=== PATIENT | female | born 1985 | race Caucasian/White ===

== ENCOUNTER 2016-05-24 22:26 | Emergency (ER) | payer OTHER ==
[2016-05-24 22:38] VITALS: TEMP 98.3
[2016-05-24] MEDS ORDERED: MORPHINE SULFATE 4 MG/ML SYRINGE IV STA (22:46)
[2016-05-24] MEDS ORDERED: ONDANSETRON 4 MG/2 ML VIAL IVP STA (22:46)
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
[2016-05-25] MEDS ORDERED: KETOROLAC 30 MG/ML 1 ML VIAL IVP STA (00:22)
[2016-05-25 00:47] VITALS: BP 120/80; PULSE 70; RESP 14
== END 2016-05-25 00:45 | disposition home or self-care (01) ==
LOC: EC 22:26
DX: T14.8 Other injury of unspecified body region (principal); R10.9 Unspecified abdominal pain; K83.8 Other specified diseases of biliary tract; F17.200 Nicotine dependence, unspecified, uncomplicated; Y04.0XXA Assault by unarmed brawl or fight, initial encounter
CPT/HCPCS: 99285; 96374; 96375 ×2; 76700; 72125; 70486; 70450; J2270; J2405; J1885

== ENCOUNTER 2016-06-14 13:43 | Emergency (ER) | payer OTHER ==
[2016-06-14 14:18] VITALS: PULSE 102; RESP 18; TEMP 98.2
--- NOTE | 2016-06-14 14:29 | ED ---
General Adult HPI - General Chief complaint: Dental/Oral Stated complaint: dental pain Time Seen by Provider: 06/14/16 14:19 Source: patient, RN notes reviewed Mode of arrival: ambulatory Limitations: no limitations - History of Present Illness Initial comments: This is a 30-year-old female who presents with left-sided dental pain that started last night. Patient states she has not taken anything for pain. Patient states she has had toothaches before in the past. Patient denies any drainage from the teeth. Patient denies any fever/chills. Patient states pain radiates to her left ear. Patient denies any chance of being . Patient denies any recent fever, chills, shortness breath, chest pain, abdominal pain, nausea/vomiting/diarrhea, back pain, numbness, tingling, hematuria, headache, or visual changes, or any other complaints. - Related Data Previous Rx's Medication Instructions Recorded HYDROcodone/APAP 5-325MG [[place] 1 tab PO Q6HR #12 tab 06/14/16 5-325] Penicillin V Potassium [Pen Vee K] 500 mg PO QID 7 Days 06/14/16 Allergies Allergy/AdvReac Type Severity Reaction Status Date / Time No Known Allergies Allergy Verified 06/14/16 14:34 Review of Systems ROS Statement: Those systems with pertinent positive or pertinent negative responses have been documented in the HPI. ROS Other: All systems not noted in ROS Statement are negative. Past Medical History Past Medical History: No Reported History Additional Past Medical History / Comment(s): ovarian cyst History of Any Multi-Drug Resistant Organisms: None Reported Past Surgical History: No Surgical Hx Reported Past Psychological History: No Psychological Hx Reported Smoking Status: Current every day smoker Past Alcohol Use History: Occasional Past Drug Use History: None Reported General Exam - General Exam Comments Initial Comments: General: The patient is awake and alert, in no distress, and does not appear acutely ill. Eye: Pupils are equal, round and reactive to light, extra-ocular movements are intact. No nystagmus. There is normal conjunctiva bilaterally. No signs of icterus. Ears: TMs pink and pearly with intact cone of light bilaterally. Normal external ear canals Nose: Nasal turbinates pink and moist Mouth and throat: Patient has widespread tooth decay and a partial in. There is tenderness to palpation over tooth #12 and to multiple teeth on the lower left side that she cannot pinpoint. Patient has no external facial swelling. There are moist mucous membranes and no oral lesions. Neck: Submandibular lymph nodes present and tender on the left side. The neck is supple, there is no JVD. Cardiovascular: There is a regular rate and rhythm. No murmur, rub or gallop is appreciated. Respiratory: Lungs are clear to auscultation, respirations are non-labored, breath sounds are equal. No wheezes, stridor, rales, or rhonchi. Musculoskeletal: Normal ROM, no tenderness. Strength 5/5. Sensation intact. Radial pulses equal bilaterally 2+. Neurological: A&O x 3. CN II-XII intact, There are no obvious motor or sensory deficits. Coordination appears grossly intact. Speech is normal. Skin: Skin is warm and dry and no rashes or lesions are noted. Psychiatric: Cooperative, appropriate mood & affect, normal judgment. Limitations: no limitations Course Vital Signs 06/14/16 06/14/16 14:17 14:56 Temperature 98.2 F Pulse Rate 102 H Respiratory 18 Rate Blood Pressure 159/112 138/86 O2 Sat by Pulse 100 Oximetry Medical Decision Making - Medical Decision Making This is a 30-year-old female who presents with left-sided dental pain that started last night. On physical exam patient is afebrile in the EC. Patient has widespread tooth decay and a partial in. There is tenderness to palpation over tooth #12 and to multiple teeth on the lower left side that she cannot pinpoint. Patient has no external facial swelling. There are moist mucous membranes and no oral lesions. I discussed with the patient that she'll be put on antibiotics. I discussed Motrin for pain and [place] for any breakthrough pain. I discussed warm compresses to the area. Patient needs to follow-up with the dentist as soon as possible. I discussed return parameters. Elevated blood pressure noted. Patient was given a dose of [place] and her blood pressure was rechecked and was 138/86. Discussed that patient should follow up with PCP in one to 2 days or return to the EC for any worsening symptoms or for any further concerns. Patient was receptive to this plan and patient will be discharged home. Disposition Clinical Impression: Pain, dental Disposition: HOME SELF-CARE Condition: Good Instructions: Toothache (ED) Additional Instructions: Please use antibiotics as prescribed. Please use pain medication as prescribed. May use [id number] Motrin for pain. Use warm compresses to the area for pain. Please follow-up with dentist as soon as possible. [facility] dental plan: [address] [place] [address], . [employer]: Have to pay $50 for x-rays and the rest is covered. [phone]. Please follow up with PCP tomorrow or return to the EC for any worsening symptoms or for any further concerns. Prescriptions: HYDROcodone/APAP 5-325MG [[place] 5-325] 1 tab PO Q6HR #12 tab Penicillin V Potassium [Pen Vee K] 500 mg PO QID 7 Days Referrals: Jon Blum MD [Primary Care Provider] - 1-2 days Time of Disposition: 14:29
[2016-06-14] MEDS ORDERED: HYDROcodone/APAP 5-325MG 1 EACH TAB PO STA (14:37)
[2016-06-14 14:56] VITALS: BP 138/86
== END 2016-06-14 15:00 | disposition home or self-care (01) ==
LOC: EC 13:43
DX: K02.9 Dental caries, unspecified (principal); F17.200 Nicotine dependence, unspecified, uncomplicated
CPT/HCPCS: 99282

== ENCOUNTER 2016-08-12 08:04 | Emergency (ER) | payer OTHER ==
[2016-08-12 08:19] VITALS: TEMP 98
[2016-08-12] MEDS ORDERED: HYDROcodone/APAP 5-325MG 1 EACH TAB PO STA (08:38)
--- NOTE | 2016-08-12 08:42 | ED ---
General Adult HPI - General Chief complaint: Dental/Oral Stated complaint: DENTAL PAIN Time Seen by Provider: 08/12/16 08:23 Source: patient, RN notes reviewed Mode of arrival: ambulatory Limitations: no limitations - History of Present Illness Initial comments: 1-year-old female who presents emergency room today with chief complaint of dental infection. She does admit that she's been on antibiotics over the last few days. She states she is taking a different prescription of the penicillin. She states she had left over. She is not sure how old it is. She states she was unable to get the pharmacy to get the new prescription filled. She states she's been using tramadol and naproxen for pain with little relief. She states is increased pain swelling over tooth #14. Patient denies any other complaints or symptoms. Patient denies any recent fever, chills, shortness of breath, chest pain, back pain, abdominal pain, nausea or vomiting, numbness or tingling , dysuria or hematuria, constipation or diarrhea, headaches or visual changes, or any other complaints. - Related Data Previous Rx's Medication Instructions Recorded HYDROcodone/APAP 5-325MG [[place] 1 tab PO Q6HR #12 tab 06/14/16 5-325] Penicillin V Potassium [Pen Vee K] 500 mg PO QID 7 Days 06/14/16 Clindamycin HCl [Cleocin] 300 mg PO Q8H 10 Days 08/12/16 Hydrocodone/Acetaminophen [[place] 1 each PO Q6HR PRN #6 tab 08/12/16 5-325] Allergies Allergy/AdvReac Type Severity Reaction Status Date / Time No Known Allergies Allergy Verified 06/14/16 14:34 Review of Systems ROS Statement: Those systems with pertinent positive or pertinent negative responses have been documented in the HPI. ROS Other: All systems not noted in ROS Statement are negative. Past Medical History Past Medical History: No Reported History Additional Past Medical History / Comment(s): ovarian cyst History of Any Multi-Drug Resistant Organisms: None Reported Past Surgical History: No Surgical Hx Reported Past Psychological History: No Psychological Hx Reported Smoking Status: Current every day smoker Past Alcohol Use History: Occasional Past Drug Use History: None Reported General Exam - General Exam Comments Initial Comments: General: The patient is awake and alert, in no distress, and does not appear acutely ill. Eye: Pupils are equal, round and reactive to light, extra-ocular movements are intact. No nystagmus. There is normal conjunctiva bilaterally. No signs of icterus. Ears, nose, mouth and throat: There are moist mucous membranes and no oral lesions. Patient does have abscess above tooth #14. Locally tender in this area. Uvula midline. Patient's without any difficulty. Neck: The neck is supple, there is no tenderness or JVD. Cardiovascular: There is a regular rate and rhythm. No murmur, rub or gallop is appreciated. Respiratory: Lungs are clear to auscultation, respirations are non-labored, breath sounds are equal. No wheezes, stridor, rales, or rhonchi. Musculoskeletal: Normal ROM, no tenderness. Strength 5/5. Sensation intact. Pulses equal bilaterally 2+. Neurological: A&O x 3. CN II-XII intact, There are no obvious motor or sensory deficits. Coordination appears grossly intact. Speech is normal. Skin: Skin is warm and dry and no rashes or lesions are noted. Psychiatric: Cooperative, appropriate mood & affect, normal judgment. Limitations: no limitations Course Vital Signs 08/12/16 08:11 Temperature 98 F Pulse Rate 112 H Respiratory 20 Rate Blood Pressure 145/104 O2 Sat by Pulse 99 Oximetry Procedures - Procedures Initial comment: 18-gauge needle was used to incise abscess above tooth #14. A small to moderate amount of purulent drainage was removed. Disposition Clinical Impression: Dental abscess Disposition: HOME SELF-CARE Condition: Good Instructions: Dental Abscess (ED) Additional Instructions: Please use a tea bag in the gumline to help a lot more in the abscess drainage. Please continue with Listerine or salt water gargles as discussed. Please use previously prescribed antibiotics along with new antibiotic clindamycin. Please follow-up with dentist over the next 2 days. Please return to emergency room if the symptoms increase or worsen or for any other concerns. Prescriptions: Clindamycin HCl [Cleocin] 300 mg PO Q8H 10 Days Hydrocodone/Acetaminophen [[place] 5-325] 1 each PO Q6HR PRN #6 tab PRN Reason: Pain Referrals: None,Stated [Primary Care Provider] - 1-2 days Time of Disposition: 08:40
[2016-08-12 09:00] VITALS: BP 143/97; PULSE 102; RESP 18
== END 2016-08-12 09:01 | disposition home or self-care (01) ==
LOC: EC 08:04
DX: K04.7 Periapical abscess without sinus (principal); F17.200 Nicotine dependence, unspecified, uncomplicated
CPT/HCPCS: 41800; 99282

== ENCOUNTER 2016-10-21 03:39 | Emergency (ER) | payer OTHER ==
[2016-10-21] MEDS ORDERED: MORPHINE SULFATE 4 MG/ML SYRINGE IVP STA ×2 (04:14→04:47)
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
[2016-10-21 04:42] LABS: Basophils % (A) 0 %; CHCM 34.9; Eosinophils # (A) 0.2 k/uL (0-0.7); Eosinophils % (A) 1 %; HCT 42.7 % (34.0-46.0); HDW 2.51; HGB 14.5 gm/dL (11.4-16.0); Luc # (Auto) 0.28; Luc % (Auto) 3; Lymphocytes # (A) 2.4 k/uL (1.0-4.8); Lymphocytes % (A) 21 %; MCH 34.3 pg (25.0-35.0); MCV 100.7 fL (80.0-100.0); Macrocytosis Slight; Mean Platelet Volume 7.5; Monocytes # (A) 0.5 k/uL (0-1.0); Monocytes % (A) 4 %; Neutrophils # (A) 7.9 k/uL (1.3-7.7); Neutrophils % (A) 70 %; RBC 4.24 m/uL (3.80-5.40); RDW 15.1 % (11.5-15.5); WBC 11.3 k/uL (3.8-10.6); WBC (Perox) 11.48
[2016-10-21 04:48] LABS: ALT 26 U/L (9-52); AST 29 U/L (14-36); Alkaline Phosphatase 65 U/L (38-126); Amylase 35 U/L (30-110); Anion Gap 16 mmol/L; Blood Urea Nitrogen 9 mg/dL (7-17); Calcium 9.5 mg/dL (8.4-10.2); Carbon Dioxide 22 mmol/L (22-30); Chloride 107 mmol/L (98-107); Glucose 111 mg/dL (74-99); Non-African American GFR(MDRD) >60 (>60 ml/min/1.73 sqM); Potassium 3.9 mmol/L (3.5-5.1); Sodium 145 mmol/L (137-145); Total Bilirubin 0.4 mg/dL (0.2-1.3); Total Protein 7.7 g/dL (6.3-8.2)
[2016-10-21] MEDS ORDERED: LACTATED RINGERS 1,000 ML IV ONE (04:54)
[2016-10-21 04:55] VITALS: BP 135/101; PULSE 88; RESP 20; TEMP 97.7
[2016-10-21 04:55] LABS: Glucose,Whole Blood 113 mg/dL (75-99)
[2016-10-21 04:59] LABS: Alcohol 332 mg/dL; INR 1.1 (<1.2); Partial Thromboplastin Time 26.5 sec (22.0-30.0); Prothrombin Time 11.4 sec (9.0-12.0)
[2016-10-21 05:05] LABS: Creatine Kinase 70 U/L (30-135)
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
[2016-10-21 05:17] LABS: Creatine Kinase MB 0.3 ng/mL (0.0-2.4); Troponin I <0.012 ng/mL (0.000-0.034)
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
[2016-10-21 05:46] LABS: Appearance,Urine Clear (Clear); Bacteria,Urine Occasional /hpf; Bilirubin,Urine Negative (Negative); Glucose,Urine (UA) Negative (Negative); Ketones,Urine Negative (Negative); Leukocyte Esterase,Urine Negative (Negative); Mucus,Urine Rare /hpf; Nitrite,Urine Positive (Negative); Particle Count 46555; Protein,Urine Negative (Negative); RBC,Urine <1 /hpf (0-5); Specific Gravity,Urine 1.003 (1.001-1.035); Squamous Epithelial Cell,Urine 2 /hpf (0-4); UA Billing (MACRO vs. MICRO) MICRO; Urobilinogen,Urine <2.0 mg/dL (<2.0); WBC,Urine 2 /hpf (0-5)
[2016-10-21] MEDS ORDERED: KETAMINE 10 MG/ML 20 ML VIAL IV ONE (06:26)
== END 2016-10-21 06:45 | disposition other institution (70) ==
LOC: EC 03:39
DX: T21.04XA Burn of unspecified degree of lower back, initial encounter (principal); T21.02XA Burn of unspecified degree of abdominal wall, initial encounter; T31.11 Burns involving 10-19% of body surface with 10-19% third degree burns; F10.229 Alcohol dependence with intoxication, unspecified; Y90.8 Blood alcohol level of 240 mg/100 ml or more; R40.2412 Glasgow coma scale score 13-15, at arrival to emergency department; F17.200 Nicotine dependence, unspecified, uncomplicated; X03.8XXA Other exposure to controlled fire, not in building or structure, initial encounter; Y92.009 Unspecified place in unspecified non-institutional (private) residence as the place of occurrence of the external cause
CPT/HCPCS: 99285; 96374; 96375; 96376; 96361; 36415; 93005; 86900; 86901; 80053; 82150; 82550; 82553; 83605; 83690; 84484; 85025; 85610; 85730; 86850; 81001; 81025; 80306; 80320; 71010; J2270

== ENCOUNTER 2016-10-25 10:04 | Emergency (ER) | payer OTHER ==
[2016-10-25 10:11] VITALS: BP 141/94; PULSE 91; RESP 18; TEMP 97.1
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
== END 2016-10-25 11:11 | disposition home or self-care (01) ==
LOC: EC 10:04
DX: T21.04XA Burn of unspecified degree of lower back, initial encounter (principal); T31.11 Burns involving 10-19% of body surface with 10-19% third degree burns; Z76.0 Encounter for issue of repeat prescription; F17.200 Nicotine dependence, unspecified, uncomplicated
CPT/HCPCS: 99283

== ENCOUNTER 2016-11-07 17:46 | Emergency (ER) | payer OTHER ==
[2016-11-07 17:58] VITALS: BP 141/92; PULSE 109; RESP 18; TEMP 98.1
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
== END 2016-11-07 18:29 | disposition home or self-care (01) ==
LOC: EC 17:46
DX: T21.24XD Burn of second degree of lower back, subsequent encounter (principal); T21.25XD Burn of second degree of buttock, subsequent encounter; T21.02XD Burn of unspecified degree of abdominal wall, subsequent encounter; Z76.0 Encounter for issue of repeat prescription; F17.200 Nicotine dependence, unspecified, uncomplicated; X08.8XXD Exposure to other specified smoke, fire and flames, subsequent encounter
CPT/HCPCS: 99283

== ENCOUNTER 2017-02-16 10:22 | Emergency (ER) | payer OTHER ==
[2017-02-16 10:27] VITALS: RESP 18; TEMP 97.7
[2017-02-16] MEDS ORDERED: KETOROLAC 60 MG/2 ML VIAL IVP STA (10:48)
--- NOTE | 2017-02-16 10:48 | ED ---
General Adult HPI - General Chief complaint: Extremity Problem,Nontraumatic Stated complaint: Left Hip Pain Time Seen by Provider: 02/16/17 10:25 Source: patient, EMS, RN notes reviewed Mode of arrival: EMS Limitations: no limitations - History of Present Illness Initial comments: This is a 21-year-old female presents to the emergency department stating that she woke up this morning in her left buttocks as well as her left anterior thigh. Hurting significantly. Patient called and he was to bring her to the hospital. Patient states she's had these symptoms on and off for years but has never followed up and his never been told what the problem is. Patient denies any injury or trauma. Patient denies any swelling or redness. Patient states she has no symptoms lately but the symptoms are similar to the previous ones. Patient denies any back pain. Patient denies any other problems at this time. Patient states movement definitely increases the pain. - Related Data Home Medications Medication Instructions Recorded Confirmed No Known Home Medications [No 02/16/17 02/16/17 Known Home Medications] Allergies Allergy/AdvReac Type Severity Reaction Status Date / Time No Known Allergies Allergy Verified 02/16/17 10:58 Review of Systems ROS Statement: Those systems with pertinent positive or pertinent negative responses have been documented in the HPI. ROS Other: All systems not noted in ROS Statement are negative. Past Medical History Past Medical History: No Reported History History of Any Multi-Drug Resistant Organisms: None Reported Past Surgical History: No Surgical Hx Reported Past Psychological History: No Psychological Hx Reported Smoking Status: Current every day smoker Past Alcohol Use History: Occasional Past Drug Use History: None Reported General Exam - General Exam Comments Initial Comments: GENERAL: Patient is well-developed and well-nourished. Patient is nontoxic and well- hydrated and is in mild distress. Patient's breath smells of alcohol ENT: Neck is soft and supple. No significant lymphadenopathy is noted. Oropharynx is clear. Moist mucous membranes. Neck has full range of motion without eliciting any pain. EYES: The sclera were anicteric and conjunctiva were pink and moist. Extraocular movements were intact and pupils were equal round and reactive to light. Eyelids were unremarkable. PULMONARY: Unlabored respirations. Good breath sounds bilaterally. No audible rales rhonchi or wheezing was noted. CARDIOVASCULAR: There is a regular rate and rhythm without any murmurs gallops or rubs. ABDOMEN: Soft and nontender with normal bowel sounds. No palpable organomegaly was noted. There is no palpable pulsatile mass. SKIN: Skin is clear with no lesions or rashes and otherwise unremarkable. NEUROLOGIC: Patient is alert and oriented x3. Cranial nerves II through XII are grossly intact. Motor and sensory are also intact. Normal speech, volume and content. Symmetrical smile. MUSCULOSKELETAL: Patient's left buttocks is tender to palpation there is no signs of trauma there is no redness or swelling. LYMPHATICS: No significant lymphadenopathy is noted PSYCHIATRIC: Normal psychiatric evaluation. Limitations: no limitations Course Vital Signs 02/16/17 10:23 Temperature 97.7 F Pulse Rate 102 H Respiratory 18 Rate Blood Pressure 136/96 O2 Sat by Pulse 97 Oximetry Medical Decision Making - Medical Decision Making Patient initially lied about her date and we were unable to look at previous visits. Patient had an alcohol level with a breathalyzer at 0.078 Patient denied having any pain medicines recently and she has 3 times felt a prescription for narcotics in January. X-ray shows no acute abnormality. Disposition Clinical Impression: Left buttock pain, Drug-seeking behavior, Alcohol intoxication Disposition: HOME SELF-CARE Condition: Good Instructions: Chronic Pain (ED) Referrals: None,Stated [Primary Care Provider] - 1-2 days Time of Disposition: 11:47
--- NOTE | 2017-02-16 11:39 | XR ---
EXAMINATION TYPE: XR Hip LT and AP Pelvis , ONE VIEW DATE OF EXAM ORDERED: 02/16/2017 HISTORY: Pain. COMPARISON: None. FINDINGS: Osseous structures about the hip are normal. No fracture or dislocation is seen. The hip j oints are reasonably well-maintained. There are phleboliths within the pelvis. IMPRESSION: NO ACUTE OSSEOUS LESION.
[2017-02-16 11:59] VITALS: BP 121/89; PULSE 89
== END 2017-02-16 11:59 | disposition home or self-care (01) ==
LOC: EC 10:22 → EDBD 10:22 → MERGE 10:22 → EC 11:59
DX: M25.552 Pain in left hip (principal); F10.129 Alcohol abuse with intoxication, unspecified; Z76.5 Malingerer [conscious simulation]; F17.200 Nicotine dependence, unspecified, uncomplicated
CPT/HCPCS: 73502; 99284; 96374; J1885

== ENCOUNTER 2017-04-02 11:23 | Emergency (ER) | payer OTHER ==
[2017-04-02] MEDS ORDERED: MORPHINE SULFATE 5 MG/ML SYRINGE IVP STA (11:45)
[2017-04-02] MEDS ORDERED: CLINDAMYCIN 600 MG in DEXTROSE 5% IN WATER 50 ML IVPB STA ×2 (11:45)
[2017-04-02] MEDS ORDERED: RX INFO: IV CONTRAST WAS GIVEN 1 EACH MISC MISCELLANE PRN (11:45)
--- NOTE | 2017-04-02 11:54 | ED ---
ENT HPI - General Chief complaint: Dental/Oral Stated complaint: Dental pain Time Seen by Provider: 04/02/17 11:38 Source: patient Mode of arrival: ambulatory Limitations: no limitations - History of Present Illness Initial comments: This is a 31-year-old female with a history of multiple dental issues who presents emergency department for left upper dental pain and facial swelling. She states that the symptoms started a few days ago and have gradually worsened. She has no point with her oral surgeon however is not able to get in there until 1 week from now. She states that the pain is increased and the swelling has increased and she feels like she has a pocket on the roof of her mouth. She states that she has partial dentures that she wears however she's had some much pain she's been unable to wear them. She denies any fevers or chills. No shortness of breath. She denies any other acute complaints. - Related Data Previous Rx's Medication Instructions Recorded Clindamycin HCl [Cleocin] 600 mg PO Q8H #42 cap 04/02/17 HYDROcodone/APAP 10-325MG [[place] 1 tab PO Q6H PRN #12 tab 04/02/17 10-325] Allergies Allergy/AdvReac Type Severity Reaction Status Date / Time No Known Allergies Allergy Verified 04/02/17 11:35 Review of Systems ROS Statement: Those systems with pertinent positive or pertinent negative responses have been documented in the HPI. ROS Other: All systems not noted in ROS Statement are negative. Past Medical History Past Medical History: No Reported History Additional Past Medical History / Comment(s): ovarian cyst History of Any Multi-Drug Resistant Organisms: None Reported Past Surgical History: No Surgical Hx Reported Past Psychological History: No Psychological Hx Reported Smoking Status: Current every day smoker Past Alcohol Use History: Occasional Past Drug Use History: None Reported General Exam - General Exam Comments Initial Comments: Constitutional: Awake alert Appears comfortable Head: Normocephalic atraumatic Eyes: no conjunctival injection No scleral icterus EOMI ENT: There is a fluctuant area on the hard palate adjacent to the left upper molars, there is extensive swelling to the patient's left cheek without any fluctuants noted, there is gingivitis involving all molars of the left upper area. Oropharynx is clear Neck: No JVD Supple Heart: Regular rate rhythm normal S1-S2 no murmurs Lungs: Clear to auscultation bilaterally No wheezing No rales Abdomen: Soft nondistended nontender Extremities: Non edematous DP pulses intact Radial pulses intact Neuro: A&Ox3 No focal neurologic deficits Psych: Appropriate mood and affect Limitations: no limitations Course Vital Signs 04/02/17 04/02/17 11:29 13:22 Temperature 98.1 F Pulse Rate 119 H 96 Respiratory 18 16 Rate Blood Pressure 160/100 162/118 O2 Sat by Pulse 99 99 Oximetry Medical Decision Making - Medical Decision Making This is a 31-year-old female presents emergency department for dental pain. She had a computed tomography scan that showed multiple periapical abscesses and one on the hard palate and one on the buccal mucosa. I spoke with Dr. verdin from oral surgery who stated that he did not recommend draining these at this time and just later on antibiotics and have him follow-up in his office. Patient likely needs to have her teeth extracted. Patient will be sent home with pain medications and clindamycin. Told to follow-up with Dr. Mccloud. Return if she has worsening symptoms. All questions were answered. - Lab Data Result diagrams: 04/02/17 12:07 04/02/17 12:07 Lab Results 04/02/17 04/02/17 04/02/17 Range/Units 12:07 12:07 12:07 WBC 15.7 H (3.8-10.6) k/uL RBC 4.41 (3.80-5.40) m/uL Hgb 14.3 (11.4-16.0) gm/dL Hct 44.5 (34.0-46.0) % MCV 100.7 H (80.0-100.0) fL MCH 32.5 (25.0-35.0) pg MCHC 32.3 (31.0-37.0) g/dL RDW 15.3 (11.5-15.5) % Plt Count 230 (150-450) k/uL Neutrophils % 78 % Lymphocytes % 13 % Monocytes % 5 % Eosinophils % 1 % Basophils % 1 % Neutrophils # 12.2 H (1.3-7.7) k/uL Lymphocytes # 2.1 (1.0-4.8) k/uL Monocytes # 0.8 (0-1.0) k/uL Eosinophils # 0.2 (0-0.7) k/uL Basophils # 0.1 (0-0.2) k/uL Macrocytosis Slight Sodium 140 (137-145) mmol/L Potassium 4.0 (3.5-5.1) mmol/L Chloride 104 (98-107) mmol/L Carbon Dioxide 22 (22-30) mmol/L Anion Gap 14 mmol/L BUN 10 (7-17) mg/dL Creatinine 0.70 (0.52-1.04) mg/dL Est GFR (MDRD) Af Amer >60 (>60 ml/min/1.73 sqM) Est GFR (MDRD) Non-Af >60 (>60 ml/min/1.73 sqM) Glucose 106 H (74-99) mg/dL Calcium 10.0 (8.4-10.2) mg/dL Total Bilirubin 0.6 (0.2-1.3) mg/dL AST 43 H (14-36) U/L ALT 38 (9-52) U/L Alkaline Phosphatase 74 (38-126) U/L Total Protein 8.1 (6.3-8.2) g/dL Albumin 4.6 (3.5-5.0) g/dL Urine HCG, Qual Not Detected (Not Detectd) Disposition Clinical Impression: Periapical abscess Disposition: HOME SELF-CARE Condition: Stable Instructions: Dental Abscess (ED) Prescriptions: Clindamycin HCl [Cleocin] 600 mg PO Q8H #42 cap HYDROcodone/APAP 10-325MG [[place] 10-325] 1 tab PO Q6H PRN #12 tab PRN Reason: Pain Referrals: None,Stated [Primary Care Provider] - 1-2 days
[2017-04-02 12:19] LABS: Basophils # (A) 0.1 k/uL (0-0.2); Basophils % (A) 1 %; Eosinophils # (A) 0.2 k/uL (0-0.7); Eosinophils % (A) 1 %; HCT 44.5 % (34.0-46.0); HGB 14.3 gm/dL (11.4-16.0); Lymphocytes # (A) 2.1 k/uL (1.0-4.8); Lymphocytes % (A) 13 %; MCH 32.5 pg (25.0-35.0); MCHC 32.3 g/dL (31.0-37.0); MCV 100.7 fL (80.0-100.0); Macrocytosis Slight; Mean Platelet Volume 8.1; Monocytes # (A) 0.8 k/uL (0-1.0); Monocytes % (A) 5 %; Neutrophils # (A) 12.2 k/uL (1.3-7.7); Neutrophils % (A) 78 %; Platelet Count 230 k/uL (150-450); RBC 4.41 m/uL (3.80-5.40); RDW 15.3 % (11.5-15.5); WBC 15.7 k/uL (3.8-10.6)
[2017-04-02 12:30] LABS: ALT 38 U/L (9-52); AST 43 U/L (14-36); Albumin 4.6 g/dL (3.5-5.0); Alkaline Phosphatase 74 U/L (38-126); Anion Gap 14 mmol/L; Blood Urea Nitrogen 10 mg/dL (7-17); Carbon Dioxide 22 mmol/L (22-30); Chloride 104 mmol/L (98-107); Glucose 106 mg/dL (74-99); Sodium 140 mmol/L (137-145); Total Bilirubin 0.6 mg/dL (0.2-1.3); Total Protein 8.1 g/dL (6.3-8.2)
[2017-04-02 13:23] VITALS: PULSE 96
--- NOTE | 2017-04-02 13:25 | CT ---
EXAMINATION TYPE: CT facial bones w con DATE OF EXAM: 04/02/2017 COMPARISON: NONE HISTORY: dental pain and Lt facial swelling CT DLP: 628.7 mGycm Automated exposure control for dose reduction was used. CONTRAST: CT scan of the facial bones is performed with IV Contrast, patient injected with 100 mL of Omnipaque 300. TECHNIQUE: CT scan of the sinuses is performed without contrast, axial images are obtained, coronal r eformatted images are also reviewed. FINDINGS: There is periapical lucency surrounding approximately teeth 13 through 15 of the upper left maxillary bone. Lateral to this there is a area of cortical erosion along the nonbuccal surface rela ryan to a small periapical dentigerous abscess with surrounding phlegmonous changes and peripheral enh ancement on series 4 image 35 measuringr 5.0 cm. Second abscess along the buccal surface on the same image measures 4.9 cm. Surrounding inflammatory change of the left maxillary region extending into th e infraorbital soft tissues is noted. Likely reactive adenopathy of the left submandibular region and level 1B and 2 are seen with the largest lymph node measuring 1.3 cm in short axis on series 4 image 18. Other right mandibular periapical lucencies are seen of the posterior T8. No cortical erosion. Moderate circumferential mucosal thickening is seen of the maxillary sinuses and left ethmoid sinuses with scant mucosal thickening in the frontal sinuses. Sphenoid sinuses are well aerated. There is ri ghtward nasal septal deviation and a small nasal septal spur. Scant amount of fluid is seen within th e right mastoid air cells. IMPRESSION: 1. Periapical lucency with cortical erosion surrounding approximately teeth 13-15 of the left maxilla ry bone with periapical abscesses measuring 5 mm of the buccal and nonbuccal surface. Likely reactive left-sided cervical adenopathy and left maxillary soft tissue inflammatory change are seen. 2. Right mandibular periapical lucencies representing dental disease without cortical erosion or absc ess.
[2017-04-02 14:17] VITALS: BP 160/107; RESP 20; TEMP 99.2
== END 2017-04-02 14:17 | disposition home or self-care (01) ==
LOC: EC 11:23
DX: K04.7 Periapical abscess without sinus (principal); R22.0 Localized swelling, mass and lump, head; F17.200 Nicotine dependence, unspecified, uncomplicated
CPT/HCPCS: 36415; 80053; 85025; 81025; 70487; 99283; 96365; 96375; Q9967; J2274

== ENCOUNTER 2017-07-15 22:13 | Emergency (ER) | payer OTHER ==
[2017-07-15] MEDS ORDERED: HYDROcodone/APAP 5-325MG 1 EACH TAB PO STA (23:43)
[2017-07-15] MEDS ORDERED: BENZOCAINE SPRAY 1 CAN MUCOUS MEM STA (23:43)
[2017-07-15] MEDS ORDERED: PENICILLIN VK 500MG STARTER 4 TAB BTL PO STA (23:44)
--- NOTE | 2017-07-16 01:01 | ED ---
ENT HPI - General Chief complaint: ENT Stated complaint: ENT Time Seen by Provider: 07/15/17 23:29 Source: patient Mode of arrival: ambulatory Limitations: no limitations - History of Present Illness Initial comments: 31-year-old female patient presents to the emergency department today for evaluation of dental abscess. Patient states that over the last couple of days she has had increased pain to the left upper dentition. Patient states that she developed a "bubble" on the roof of her mouth. Patient states that this is very painful. She denies any fevers or chills. Denies any difficulty swallowing or trismus. She denies any nausea or vomiting. Patient states that she has many cavities however has not been able to get to a dentist. Patient denies any recent rash, shortness breath, chest pain, abdominal pain, diarrhea, constipation, back pain, numbness, tingling, dizziness, weakness, hematuria, dysuria, urinary urgency, urinary frequency, headache, visual changes, or any other complaints. - Related Data Previous Rx's Medication Instructions Recorded Clindamycin HCl [Cleocin] 600 mg PO Q8H #42 cap 04/02/17 HYDROcodone/APAP 10-325MG [[place] 1 tab PO Q6H PRN #12 tab 04/02/17 10-325] Hydrocodone/Acetaminophen [[place] 1 tab PO Q6HR PRN #12 tab 07/16/17 5-325] Penicillin V Potassium [Pen Vee K] 500 mg PO Q6H #40 tablet 07/16/17 Allergies Allergy/AdvReac Type Severity Reaction Status Date / Time No Known Allergies Allergy Verified 07/15/17 22:25 Review of Systems ROS Statement: Those systems with pertinent positive or pertinent negative responses have been documented in the HPI. ROS Other: All systems not noted in ROS Statement are negative. Past Medical History Past Medical History: No Reported History Additional Past Medical History / Comment(s): ovarian cyst History of Any Multi-Drug Resistant Organisms: None Reported Past Surgical History: No Surgical Hx Reported Past Psychological History: No Psychological Hx Reported Smoking Status: Current every day smoker Past Alcohol Use History: Occasional Past Drug Use History: None Reported General Exam Limitations: no limitations General appearance: alert, in no apparent distress, anxious, other (This is a rather anxious, well-developed, well-nourished adult female patient in no acute distress. Vital signs upon presentation are temperature 97.6F, pulse 118, respirations 18, blood pressure 146/96, pulse ox 98% on room air.) Eye exam: Present: normal appearance, PERRL, EOMI. Absent: scleral icterus, conjunctival injection, periorbital swelling ENT exam: Present: mucous membranes moist, other (There is evidence of dental abscess to the left hard palate. Very poor dentition with multiple broken teeth and dental caries.). Absent: normal exam Neck exam: Present: normal inspection. Absent: tenderness, meningismus, lymphadenopathy Respiratory exam: Present: normal lung sounds bilaterally. Absent: respiratory distress, wheezes, rales, rhonchi, stridor Cardiovascular Exam: Present: regular rate, normal rhythm, normal heart sounds. Absent: systolic murmur, diastolic murmur, rubs, gallop, clicks Neurological exam: Present: alert, oriented X3, CN II-XII intact Psychiatric exam: Present: anxious Skin exam: Present: warm, dry, intact, normal color. Absent: rash Course Vital Signs 07/15/17 07/16/17 22:21 01:05 Temperature 97.6 F 97 F L Pulse Rate 118 H 78 Respiratory 18 20 Rate Blood Pressure 146/96 144/77 O2 Sat by Pulse 98 97 Oximetry Procedures - Incision & Drainage Consent Obtained: verbal consent Indication: Dental abscess Site: oral (Left hard palate) Size (cm): 2 Anesthetic Used: lidocaine 1% Amount (mLs): 1 Needle Aspiration Performed?: Yes I&D Drainage Obtained: Pus, Blood Culture Obtained?: No Complications: pain Patient Tolerated Procedure: well Medical Decision Making - Medical Decision Making 31-year-old female patient presented to the emergency department today for evaluation of dental abscess. Physical examination did reveal an abscess to the left hard palate. Patient had very poor dentition with multiple broken teeth and dental caries. Patient was afebrile. Patient was quite anxious throughout the entire examination and drainage. I did perform needle aspiration did get out a small amount of pus and blood. Patient was unable to tolerate any further expression of the purulent material. Patient was given a [place] here in the department. She'll be given a prescription for Pen-Vee K and a prescription for [place] to take home. She was given dental referrals and instructed to follow-up as soon as possible. Return parameters discussed in detail. She verbalizes understanding and agreed with this plan. Disposition Clinical Impression: Dental abscess Disposition: HOME SELF-CARE Condition: Good Instructions: Dental Abscess (ED) Additional Instructions: Avoid wearing your bridge. Take medications as directed. Follow-up with dentistry as soon as possible. Swish with warm salt water. Return here immediately for any new, worsening, or concerning symptoms. Please follow up with the [facility] dental clinic. [facility] [place] [address]. Phone number for new patients or for existing patients. [facility]. Must pay for x-rays then services are free. Call for an appoitnment. Prescriptions: Hydrocodone/Acetaminophen [[place] 5-325] 1 tab PO Q6HR PRN #12 tab PRN Reason: Pain Penicillin V Potassium [Pen Vee K] 500 mg PO Q6H #40 tablet Is patient prescribed a controlled substance at d/c from ED?: Yes When asked, does pt state using other controlled substances?: No Referrals: None,Stated [Primary Care Provider] - 1-2 days Time of Disposition: 01:00
[2017-07-16 01:11] VITALS: BP 144/77; PULSE 78; RESP 20; TEMP 97
== END 2017-07-16 01:11 | disposition home or self-care (01) ==
LOC: EC 22:13
DX: K04.7 Periapical abscess without sinus (principal); S02.5XXA Fracture of tooth (traumatic), initial encounter for closed fracture; K02.9 Dental caries, unspecified; F17.200 Nicotine dependence, unspecified, uncomplicated
CPT/HCPCS: 41800; 99282

== ENCOUNTER 2018-04-07 12:56 | Emergency (ER) | payer OTHER ==
[2018-04-07 13:03] VITALS: RESP 18; TEMP 98.3
--- NOTE | 2018-04-07 13:28 | ED ---
General Adult HPI - General Chief complaint: Dental/Oral Stated complaint: dental abscess Time Seen by Provider: 04/07/18 13:16 Source: patient, RN notes reviewed, old records reviewed Mode of arrival: ambulatory Limitations: no limitations - History of Present Illness Initial comments: Patient 32-year-old female presented to the emergency room today with a chief complaint of increased dental pain. Does admit to a history of poor dental hygiene. States he does not have dental insurance and has been trying to follow up with the oral surgeon to have teeth removed. Does admit that she began having some discomfort yesterday with increased swelling today. He is worried about dental abscess. She states the symptoms are consistent with abscess that she's had in the past. Patient denies any other complaints or symptoms. Patient denies any recent fever, chills, shortness of breath, chest pain, back pain, abdominal pain, nausea or vomiting, numbness or tingling, headaches or visual changes, or any other complaints. - Related Data Previous Rx's Medication Instructions Recorded Clindamycin HCl [Cleocin] 600 mg PO Q8H #42 cap 04/02/17 HYDROcodone/APAP 10-325MG [[place] 1 tab PO Q6H PRN #12 tab 04/02/17 10-325] Hydrocodone/Acetaminophen [[place] 1 tab PO Q6HR PRN #12 tab 07/16/17 5-325] Penicillin V Potassium [Pen Vee K] 500 mg PO Q6H #40 tablet 07/16/17 Hydrocodone/Acetaminophen [[place] 1 each PO Q6HR PRN #12 tab 04/07/18 5-325] Ibuprofen [Motrin] 600 mg PO Q6HR PRN #40 day 04/07/18 Penicillin V Potassium [Pen Vee K] 500 mg PO QID #40 tablet 04/07/18 Allergies Allergy/AdvReac Type Severity Reaction Status Date / Time tramadol AdvReac Rapid Verified 04/07/18 13:03 Heart Rate Review of Systems ROS Statement: Those systems with pertinent positive or pertinent negative responses have been documented in the HPI. ROS Other: All systems not noted in ROS Statement are negative. Past Medical History Past Medical History: No Reported History Additional Past Medical History / Comment(s): ovarian cyst History of Any Multi-Drug Resistant Organisms: None Reported Past Surgical History: No Surgical Hx Reported Past Psychological History: No Psychological Hx Reported Smoking Status: Current every day smoker Past Alcohol Use History: Occasional Past Drug Use History: None Reported General Exam - General Exam Comments Initial Comments: General: The patient is awake and alert, in no distress, and does not appear acutely ill. Eye: There is normal conjunctiva bilaterally. No signs of icterus. Ears, nose, mouth and throat: There are moist mucous membranes and no oral lesions. Moderate swelling to the right lower jaw. There is an area that is firm on palpation. No fluctuant area. Patient does have poor dental hygiene with multiple fractured teeth out of the gumline. Patient is tender throughout the gumline on the lower jaw. No drainable abscesses seen. Uvula midline. Swallows without any difficulty. Neck: The neck is supple. Musculoskeletal: Normal ROM, no tenderness. Strength 5/5. Sensation intact. Pulses equal bilaterally 2+. Neurological: A&O x 3. CN II-XII intact, There are no obvious motor or sensory deficits. Coordination appears grossly intact. Speech is normal. Skin: Skin is warm and dry and no rashes or lesions are noted. Psychiatric: Cooperative, appropriate mood & affect, normal judgment. Limitations: no limitations Course Vital Signs 04/07/18 13:00 Temperature 98.3 F Pulse Rate 106 H Respiratory 18 Rate Blood Pressure 156/102 O2 Sat by Pulse 98 Oximetry Medical Decision Making - Medical Decision Making 32-year-old female with poor dental hygiene presenting for dental abscess. Has had this multiple times in the past tried to see a dentist but does not have dental insurance. Information about [facility] was discussed with the patient through the dental program that it may be a good option for follow- up. Did discuss about antibiotics and pain medication. Patient will be given short prescription of [place]. An opiate start talking form was filled out. Patient is advised close follow-up over the next 2 days returning if symptoms increase or worsen. Disposition Clinical Impression: Dental abscess Disposition: HOME SELF-CARE Condition: Good Instructions (If sedation given, give patient instructions): Dental Abscess (ED ) Additional Instructions: Please follow-up with dentist and use antibiotic and pain medication as discussed. [facility] [address] [address] [phone]) (existing clients only) For new clients: [phone] [facility] Pay $50 for x-rays and the rest discovered [phone] Prescriptions: Hydrocodone/Acetaminophen [[place] 5-325] 1 each PO Q6HR PRN #12 tab PRN Reason: Pain Ibuprofen [Motrin] 600 mg PO Q6HR PRN #40 day PRN Reason: Pain Penicillin V Potassium [Pen Vee K] 500 mg PO QID #40 tablet Is patient prescribed a controlled substance at d/c from ED?: Yes If prescribed controlled substance>3 days was MAPS reviewed?: Prescribed <3 Days Referrals: None,Stated [Primary Care Provider] - 1-2 days Time of Disposition: 13:32
[2018-04-07 13:36] VITALS: BP 130/90; PULSE 100
== END 2018-04-07 13:42 | disposition home or self-care (01) ==
LOC: EC 12:56
DX: K04.7 Periapical abscess without sinus (principal); S02.5XXA Fracture of tooth (traumatic), initial encounter for closed fracture; Z76.0 Encounter for issue of repeat prescription; F17.200 Nicotine dependence, unspecified, uncomplicated; Z88.5 Allergy status to narcotic agent; X58.XXXA Exposure to other specified factors, initial encounter
CPT/HCPCS: 99283

== ENCOUNTER 2018-09-20 19:31 | Emergency (ER) | payer OTHER ==
[2018-09-20 19:43] VITALS: TEMP 98.5
[2018-09-20] MEDS ORDERED: MORPHINE SULFATE 2 MG/ML SYRINGE IM STA (20:20)
--- NOTE | 2018-09-20 20:23 | ED ---
ENT HPI - General Chief complaint: Dental/Oral Stated complaint: Dental pain Time Seen by Provider: 09/20/18 19:49 Source: patient Mode of arrival: ambulatory - History of Present Illness Initial comments: 33-year-old female presenting for chief complaint of right-sided dental pain. Patient states she has poor dentition. Patient states she has had a dental abscess in the past and this is identical. Patient states she did not want to get worse so she presented today for evaluation. Patient states the symptoms began last night. Patient states she no she needs all of her teeth extracted. Patient denies any ALLERGIES to penicillins. Patient denies any difficulty breathing or swallowing. She denies any fevers. Has a stye below the tongue. Remaining review of system negative. Upon arrival patient appears uncomfortable but nontoxic. Afebrile. - Related Data Previous Rx's Medication Instructions Recorded Clindamycin HCl [Cleocin] 600 mg PO Q8H #42 cap 04/02/17 HYDROcodone/APAP 10-325MG [[place] 1 tab PO Q6H PRN #12 tab 04/02/17 10-325] Hydrocodone/Acetaminophen [[place] 1 tab PO Q6HR PRN #12 tab 07/16/17 5-325] Penicillin V Potassium [Pen Vee K] 500 mg PO Q6H #40 tablet 07/16/17 Hydrocodone/Acetaminophen [[place] 1 each PO Q6HR PRN #12 tab 04/07/18 5-325] Ibuprofen [Motrin] 600 mg PO Q6HR PRN #40 day 04/07/18 Penicillin V Potassium [Pen Vee K] 500 mg PO QID #40 tablet 04/07/18 Hydrocodone/Acetaminophen [[place] 1 tab PO Q6HR PRN 3 Days #12 tab 09/20/18 5-325] Ibuprofen 800 mg PO Q8H PRN 7 Days #21 tablet 09/20/18 Penicillin V Potassium [Pen Vee K] 500 mg PO QID 7 Days #28 tablet 09/20/18 Allergies Allergy/AdvReac Type Severity Reaction Status Date / Time tramadol AdvReac Rapid Verified 04/07/18 13:03 Heart Rate Review of Systems ROS Statement: Those systems with pertinent positive or pertinent negative responses have been documented in the HPI. ROS Other: All systems not noted in ROS Statement are negative. Past Medical History Past Medical History: No Reported History Additional Past Medical History / Comment(s): ovarian cyst History of Any Multi-Drug Resistant Organisms: None Reported Past Surgical History: No Surgical Hx Reported Past Psychological History: No Psychological Hx Reported Smoking Status: Current every day smoker Past Alcohol Use History: Occasional Past Drug Use History: None Reported General Exam - General Exam Comments Initial Comments: General: The patient is awake and alert, in no distress, and does not appear acutely ill. Eye: Pupils are equal, round and reactive to light, extra-ocular movements are intact. No nystagmus. There is normal conjunctiva bilaterally. No signs of icterus. Ears, nose, mouth and throat: There are moist mucous membranes and no oral lesions. The swelling below the tongue or below the angle of the mandible. Patient has some right lower jaw swelling of the face. No palpable fluctuant absences or pain to percussion of the right lower teeth 31 through 27. They have multiple caries and cracked crowns. No tripoding. No muffled voice. Uvula midline. Neck: The neck is supple, there is no tenderness or JVD. Cardiovascular: There is a regular rate and rhythm. No murmur, rub or gallop is appreciated. Respiratory: Lungs are clear to auscultation, respirations are non-labored, breath sounds are equal. No wheezes, stridor, rales, or rhonchi. Gastrointestinal: [Soft, non-distended, non-tender abdomen without masses or organomegaly noted. There is no rebound or guarding present. No CVA tenderness. Bowel sounds are unremarkable.] Musculoskeletal: Normal ROM, no tenderness. Strength 5/5. Sensation intact. Radial pulses equal bilaterally 2+. Neurological: A&O x 3. CN II-XII intact, There are no obvious motor or sensory deficits. Coordination appears grossly intact. Speech is normal. Skin: Skin is warm and dry and no rashes or lesions are noted. Psychiatric: Cooperative, appropriate mood & affect, normal judgment. Course Vital Signs 09/20/18 09/20/18 09/20/18 19:38 20:43 21:13 Temperature 98.5 F 98.5 F Pulse Rate 106 H 110 H 110 H Respiratory 18 16 18 Rate Blood Pressure 155/110 171/79 171/79 O2 Sat by Pulse 98 97 97 Oximetry Medical Decision Making - Medical Decision Making 33-year-old female presenting with dental pain. There is no evidence of fluctuant abscess on examination. However soft tissue swelling of the right lower jaw. Patient is pain percussion concern for possible primary apical abscess. Patient was started on Pen-Vee K. Given [place] for pain management did discuss the risks and appropriate use of opioids. I discussed the importance of tooth extraction adherence anabolic regimen. Return parameters discussed at length patient as well as her father who is bedside which included swelling below the angle of the mandible, swelling below tongue fevers difficulty breathing or swallowing. Patient verbalized understanding. Patient was agreeable to plan discharge at this time. Disposition Clinical Impression: Pain, dental, Dental abscess Disposition: HOME SELF-CARE Condition: Good Instructions (If sedation given, give patient instructions): Dental Abscess (ED) Additional Instructions: Please use medication as discussed. Please follow-up with family doctor in the next 2 days. Dentist as discussed. Please return to emergency room if the symptoms increase or worsen or for any other concerns. Prescriptions: Ibuprofen 800 mg PO Q8H PRN 7 Days #21 tablet PRN Reason: Pain Hydrocodone/Acetaminophen [[place] 5-325] 1 tab PO Q6HR PRN 3 Days #12 tab PRN Reason: Severe Pain Penicillin V Potassium [Pen Vee K] 500 mg PO QID 7 Days #28 tablet Is patient prescribed a controlled substance at d/c from ED?: Yes When asked, does pt state using other controlled substances?: No If prescribed controlled substance>3 days was MAPS reviewed?: Prescribed <3 Days If opioid is for acute pain is fill amount 7 days or less?: Yes If Rx opioid, was Start Talking consent form obtained?: Yes Referrals: None,Stated [Primary Care Provider] - 1-2 days Sivakumar Mccloud DDS [STAFF PHYSICIAN] - 1-2 days Time of Disposition: 20:23
[2018-09-20 20:44] VITALS: BP 171/79; PULSE 110
[2018-09-20 21:14] VITALS: RESP 18
== END 2018-09-20 21:12 | disposition home or self-care (01) ==
LOC: EC 19:31
DX: K04.7 Periapical abscess without sinus (principal); K02.9 Dental caries, unspecified; K08.539 Fractured dental restorative material, unspecified; F17.200 Nicotine dependence, unspecified, uncomplicated; Z88.5 Allergy status to narcotic agent
CPT/HCPCS: 99282; 96372; J2270

== ENCOUNTER 2018-10-05 20:43 | Emergency (ER) | payer OTHER ==
[2018-10-05 21:32] VITALS: RESP 18
[2018-10-05] MEDS ORDERED: BUPIVACAINE (PF) 0.75% 10 ML VIAL SQ STA (22:46)
[2018-10-05] MEDS ORDERED: ACET/COD 300 MG/30 MG STARTER PACK 6 TAB BTL PO STA (23:28)
--- NOTE | 2018-10-05 23:29 | ED ---
ENT HPI - General Source: patient Mode of arrival: ambulatory Limitations: no limitations <Branden Fields - Last Filed: 10/06/18 01:14> <Ann Marie Oliveira - Last Filed: 10/06/18 02:17> - General Chief complaint: Dental/Oral Stated complaint: Dental Pain Time Seen by Provider: 10/05/18 22:20 - History of Present Illness Initial comments: Patient is a 33-year-old female presents emergency Department with dental pain. She reports intermittent right-sided dental pain due to poor dentition. Patient reports she was in the emergency department 2 weeks ago and was prescribed an antibiotic and discharged. Patient reports the swelling has slightly resolved but the pain is still present. Patient reports she is unable to visit a dentist due to transportation issues. Patient reports the pain radiates along her right ear. Patient reports the pain is exacerbated when he flew and palpating the tender region. Patient reports not taking the prescribed antibiotic as directed. Patient reports most of the tenderness is along the mandible. Patient denies fever, headache, nausea, vomiting, chest pain, chest tightness, shortness of breath. (Branden Fields) - Related Data Previous Rx's Medication Instructions Recorded Clindamycin HCl [Cleocin] 600 mg PO Q8H #42 cap 04/02/17 HYDROcodone/APAP 10-325MG [[place] 1 tab PO Q6H PRN #12 tab 04/02/17 10-325] Hydrocodone/Acetaminophen [[place] 1 tab PO Q6HR PRN #12 tab 07/16/17 5-325] Penicillin V Potassium [Pen Vee K] 500 mg PO Q6H #40 tablet 07/16/17 Hydrocodone/Acetaminophen [[place] 1 each PO Q6HR PRN #12 tab 04/07/18 5-325] Ibuprofen [Motrin] 600 mg PO Q6HR PRN #40 day 04/07/18 Penicillin V Potassium [Pen Vee K] 500 mg PO QID #40 tablet 04/07/18 Hydrocodone/Acetaminophen [[place] 1 tab PO Q6HR PRN 3 Days #12 tab 09/20/18 5-325] Ibuprofen 800 mg PO Q8H PRN 7 Days #21 tablet 09/20/18 Penicillin V Potassium [Pen Vee K] 500 mg PO QID 7 Days #28 tablet 09/20/18 Clindamycin [Cleocin] 150 mg PO Q6H #40 capsule 10/05/18 Allergies Allergy/AdvReac Type Severity Reaction Status Date / Time tramadol AdvReac Rapid Verified 04/07/18 13:03 Heart Rate Review of Systems ROS Other: All systems not noted in ROS Statement are negative. <Branden Fields - Last Filed: 10/06/18 01:14> ROS Other: All systems not noted in ROS Statement are negative. <Ann Marie Oliveira - Last Filed: 10/06/18 02:17> ROS Statement: Those systems with pertinent positive or pertinent negative responses have been documented in the HPI. Past Medical History Past Medical History: No Reported History Additional Past Medical History / Comment(s): ovarian cyst History of Any Multi-Drug Resistant Organisms: None Reported Past Surgical History: No Surgical Hx Reported Past Psychological History: No Psychological Hx Reported Smoking Status: Current every day smoker Past Alcohol Use History: Occasional Past Drug Use History: None Reported <Branden Fields - Last Filed: 10/06/18 01:14> General Exam Limitations: no limitations General appearance: alert, in no apparent distress, lethargic Head exam: Present: atraumatic, normocephalic, normal inspection Eye exam: Present: normal appearance, PERRL, EOMI Pupils: Present: normal accommodation ENT exam: Present: normal exam, mucous membranes moist, TM's normal bilaterally, normal external ear exam. Absent: normal oropharynx (Poor dentition with multiple caries when all teeth. No dental abscess noted. No fluctuance. Erythema along the gumline of tooth #3-7. No discharge noted) Neck exam: Present: normal inspection Respiratory exam: Present: normal lung sounds bilaterally Cardiovascular Exam: Present: normal rhythm, tachycardia, normal heart sounds Extremities exam: Present: normal inspection, full ROM Back exam: Present: normal inspection, full ROM Neurological exam: Present: alert, oriented X3 Psychiatric exam: Present: normal affect, normal mood <Branden Fields - Last Filed: 10/06/18 01:14> Course Vital Signs 10/05/18 10/05/18 21:29 23:42 Temperature 98.2 F 97.6 F Pulse Rate 110 H 98 Respiratory 18 18 Rate Blood Pressure 135/90 132/97 O2 Sat by Pulse 96 96 Oximetry Medical Decision Making <Branden Fields - Last Filed: 10/06/18 01:14> <Ann Marie Oliveira - Last Filed: 10/06/18 02:17> - Medical Decision Making Patient is a 33-year-old female presenting to emergency Department with right-s ided dental pain. Based on physical examination I do not see a need for incision and drainage. No dental abscess noted. Patient will be discharged with clindamycin. Patient given Tylenol 3 starter pack. Patient was given a inferior alveolar dental block using Marcaine. Patient given advice about the importance of dental hygiene. Patient advised to follow-up with a dentist. Strict return parameters were thoroughly discussed with patient was understanding and agreeable. Case discussed with physician. (Branden Fields) I was available for consultation in the emergency department. The history and physical exam were done by the midlevel provider. I was consulted for this patient's care. I reviewed the case with the midlevel provider and based on their presentation of the patient, I agree with the assessment, medical decision making and plan of care as documented. Chart was dictated using vozero dictation software. Attempts were made to correct any dictation errors however some typographical errors may persist. (Ann Marie Oliveira) Disposition Is patient prescribed a controlled substance at d/c from ED?: No Time of Disposition: 23:29 <Branden Fields - Last Filed: 10/06/18 01:14> <Ann Marie Oliveira - Last Filed: 10/06/18 02:17> Clinical Impression: Pain, dental Disposition: HOME SELF-CARE Condition: Stable Instructions (If sedation given, give patient instructions): Toothache (ED) Additional Instructions: Please take prescribed medication as directed. Please follow-up with a dentist. Please return to emergency department if symptoms worsen. Prescriptions: Clindamycin [Cleocin] 150 mg PO Q6H #40 capsule Referrals: None,Stated [Primary Care Provider] - 1-2 days
[2018-10-05 23:43] VITALS: BP 132/97; PULSE 98; TEMP 97.6
== END 2018-10-05 23:46 | disposition home or self-care (01) ==
LOC: EC 20:43
DX: K08.89 Other specified disorders of teeth and supporting structures (principal); K02.9 Dental caries, unspecified; R00.0 Tachycardia, unspecified; F17.200 Nicotine dependence, unspecified, uncomplicated; Z87.42 Personal history of other diseases of the female genital tract; Z88.5 Allergy status to narcotic agent
CPT/HCPCS: 64400; 99282

== ENCOUNTER 2019-05-22 14:51 | Inpatient (IN) | payer OTHER ==
[2019-05-22] MEDS ORDERED: SODIUM CHLORIDE 0.9% 500 ML 500 ML IV ONE (15:18)
[2019-05-22] MEDS ORDERED: MORPHINE SULFATE 4 MG/ML SYRINGE IVP STA (15:18)
--- NOTE | 2019-05-22 15:21 | ED ---
ENT HPI - General Source: patient Mode of arrival: ambulatory Limitations: no limitations <Pat Brady - Last Filed: 05/22/19 18:43> <Bette Hobbs - Last Filed: 05/28/19 13:57> - General Chief complaint: Dental/Oral Stated complaint: abcess tooth Time Seen by Provider: 05/22/19 14:57 - History of Present Illness Initial comments: 33-year-old female presenting today for chief complaint of right lower dental pain. Patient states she has had right lower dental pain for the past day. She states she's had dental infections in the past. Patient denies any fevers she states the swelling is now spreading down her neck. Patient denies any difficulty swallowing breathing or tolerating oral secretions. Patient denies any chest pain shortness of breath she denies any fevers or general malaise. Patient states she can no longer take the pain and that is why she presented to the emergency department today for evaluation. Patient does admit to very carious teeth and states that she has missed all of her dental follow-ups and is noncompliant. (Pat Brady) - Related Data Previous Rx's Medication Instructions Recorded Amoxicillin 500 mg PO Q8H #30 capsule 05/25/19 HYDROcodone/APAP 5-325MG [[place] 1 each PO Q6HR PRN #3 tab 05/25/19 5-325] Allergies Allergy/AdvReac Type Severity Reaction Status Date / Time tramadol AdvReac Rapid Verified 05/22/19 19:03 Heart Rate Review of Systems ROS Other: All systems not noted in ROS Statement are negative. <Pat Brady - Last Filed: 05/22/19 18:43> ROS Other: All systems not noted in ROS Statement are negative. <Bette Hobbs - Last Filed: 05/28/19 13:57> ROS Statement: Those systems with pertinent positive or pertinent negative responses have been documented in the HPI. Past Medical History Past Medical History: No Reported History Additional Past Medical History / Comment(s): ovarian cyst History of Any Multi-Drug Resistant Organisms: None Reported Past Surgical History: No Surgical Hx Reported Past Psychological History: No Psychological Hx Reported Smoking Status: Current every day smoker Past Alcohol Use History: Occasional Past Drug Use History: None Reported <Pat Brady - Last Filed: 05/22/19 18:43> General Exam Limitations: no limitations <Pat Brady - Last Filed: 05/22/19 18:43> - General Exam Comments Initial Comments: General: The patient is awake and alert, in no distress, but appears uncomfortable holding right side of face. Eye: +3 mm pupils are equal, round and reactive to light, extra-ocular m ovements are intact. No nystagmus. There is normal conjunctiva bilaterally. No signs of icterus. Ears, nose, mouth and throat: There are moist mucous membranes and no oral lesions. There is multiple carious teeth and poor dentition. Patient has tenderness to palpation and percussion as well as a broken crown on tooth #29, patient has pain to palpation below the tongue however no noted swelling, no abscess identified. Pain to percussion, the swelling does extend slightly past the angle of the mandible. No drooling. No trismus. Neck: The neck is supple, there is no tenderness or JVD. Cardiovascular: There is a regular rate and rhythm. No murmur, rub or gallop is appreciated. Respiratory: Lungs are clear to auscultation, respirations are non-labored, breath sounds are equal. No wheezes, stridor, rales, or rhonchi. Musculoskeletal: Normal ROM, no tenderness. Strength 5/5. Sensation intact. Radial pulses equal bilaterally 2+. Neurological: A&O x 3. CN II-XII intact grossly, There are no obvious motor or sensory deficits. Coordination appears grossly intact. Speech is normal. Skin: Skin is warm and dry and no rashes or lesions are noted. Psychiatric: Cooperative, appropriate mood & affect, normal judgment. (Pat Brady) Course Vital Signs 05/22/19 05/22/19 05/22/19 14:53 18:48 20:00 Temperature 98.0 F 98.3 F 98.2 F Pulse Rate 100 93 102 H Pulse Rate [ 90 Pulse Oximetery ] Respiratory 20 18 20 Rate Blood Pressure 154/111 152/103 148/99 O2 Sat by Pulse 100 97 98 Oximetry Medical Decision Making - Lab Data Result diagrams: 05/22/19 15:40 05/22/19 15:40 <Pat Brady - Last Filed: 05/22/19 18:43> - Lab Data Result diagrams: 05/23/19 09:26 05/23/19 09:26 <Bette Hobbs - Last Filed: 05/28/19 13:57> - Medical Decision Making 33-year-old female presenting today for dental pain x 1 day. Concern for possibly developing deep space infection on initial physical examination-patient evaluated by Faby who concurs. Pt does example 5 any signs at this time of airway compromise no stridor tripod drooling patient is tolerating oral secretions there is no trismus. However there is swelling that extends past the angle of the mandible. CT was obtained revealing no evidence of airway compromise however there is noted mild soft tissue swelling of the right mandible where patient has concern for infection. There was no noted collections of fluid such as phlegmon or abscess. Patient afebrile. At this time given patient's physical examination findings will be admitted for severe dental infection she was placed on Unasyn in the emergency department. Patient is given IV Decadron. Patient continues to appear well and nontoxic pain contr olled with morphine in the ED. Patient is a smoker heavily up to 25+ cigarettes a day, provided nicotine patch. [facility] physician and Dr. Torres accepted admission. Patient agreeable to admission. (Pat Brady) I was available for consultation in the emergency department. The history and physical exam were done by the midlevel provider. I was consulted for this daniel ents care. I reviewed the case with the midlevel provider and based on their presentation of the patient, I agree with the assessment, medical decision making and plan of care as documented. I evaluated the patient myself. She presents for dental infection with redness and swelling that extends on to her neck. No signs of airway compromise however I do have concern for progressing to [place] Angina. Because of this I recommended hospital admission with oral surgery and ENT to consult. Dr. Torres was called who agreed to consult. [facility] physician accepted the admission. Chart was dictated using Andigilog dictation software. Attempts were made to correct any dictation errors however some typographical errors may persist. (Bette Hobbs) - Lab Data Lab Results 05/22/19 05/22/19 05/22/19 Range/Units 15:40 15:40 15:40 WBC 12.2 H (3.8-10.6) k/uL RBC 4.13 (3.80-5.40) m/uL Hgb 14.1 (11.4-16.0) gm/dL Hct 42.1 (34.0-46.0) % MCV 101.9 H (80.0-100.0) fL MCH 34.2 (25.0-35.0) pg MCHC 33.6 (31.0-37.0) g/dL RDW 14.3 (11.5-15.5) % Plt Count 216 (150-450) k/uL Neutrophils % 70 % Lymphocytes % 21 % Monocytes % 6 % Eosinophils % 1 % Basophils % 0 % Neutrophils # 8.5 H (1.3-7.7) k/uL Lymphocytes # 2.5 (1.0-4.8) k/uL Monocytes # 0.7 (0-1.0) k/uL Eosinophils # 0.1 (0-0.7) k/uL Basophils # 0.0 (0-0.2) k/uL Macrocytosis Slight Sodium 134 L (137-145) mmol/L Potassium 3.8 (3.5-5.1) mmol/L Chloride 102 (98-107) mmol/L Carbon Dioxide 19 L (22-30) mmol/L Anion Gap 13 mmol/L BUN 10 (7-17) mg/dL Creatinine 0.64 (0.52-1.04) mg/dL Est GFR (CKD-EPI)AfAm >90 (>60 ml/min/1.73 sqM) Est GFR (CKD-EPI)NonAf >90 (>60 ml/min/1.73 sqM) Glucose 102 H (74-99) mg/dL Lactic Ac Sepsis Rflx Plasma Lactic Acid Roc 2.9 H* (0.7-2.0) mmol/L Calcium 9.8 (8.4-10.2) mg/dL Total Bilirubin 0.5 (0.2-1.3) mg/dL AST 37 H (14-36) U/L ALT 21 (4-34) U/L Alkaline Phosphatase 64 (38-126) U/L Total Protein 8.0 (6.3-8.2) g/dL Albumin 4.7 (3.5-5.0) g/dL 05/22/19 05/22/19 05/23/19 Range/Units 16:27 19:47 09:26 WBC 14.3 H (3.8-10.6) k/uL RBC 3.97 (3.80-5.40) m/uL Hgb 13.4 (11.4-16.0) gm/dL Hct 39.8 (34.0-46.0) % MCV 100.3 H (80.0-100.0) fL MCH 33.9 (25.0-35.0) pg MCHC 33.8 (31.0-37.0) g/dL RDW 14.4 (11.5-15.5) % Plt Count 228 (150-450) k/uL Neutrophils % 86 % Lymphocytes % 8 % Monocytes % 5 % Eosinophils % 0 % Basophils % 0 % Neutrophils # 12.3 H (1.3-7.7) k/uL Lymphocytes # 1.1 (1.0-4.8) k/uL Monocytes # 0.6 (0-1.0) k/uL Eosinophils # 0.0 (0-0.7) k/uL Basophils # 0.0 (0-0.2) k/uL Macrocytosis Slight Sodium (137-145) mmol/L Potassium (3.5-5.1) mmol/L Chloride (98-107) mmol/L Carbon Dioxide (22-30) mmol/L Anion Gap mmol/L BUN (7-17) mg/dL Creatinine (0.52-1.04) mg/dL Est GFR (CKD-EPI)AfAm (>60 ml/min/1.73 sqM) Est GFR (CKD-EPI)NonAf (>60 ml/min/1.73 sqM) Glucose (74-99) mg/dL Lactic Ac Sepsis Rflx Y Plasma Lactic Acid Roc 1.6 (0.7-2.0) mmol/L Calcium (8.4-10.2) mg/dL Total Bilirubin (0.2-1.3) mg/dL AST (14-36) U/L ALT (4-34) U/L Alkaline Phosphatase (38-126) U/L Total Protein (6.3-8.2) g/dL Albumin (3.5-5.0) g/dL 05/23/19 Range/Units 09:26 WBC (3.8-10.6) k/uL RBC (3.80-5.40) m/uL Hgb (11.4-16.0) gm/dL Hct (34.0-46.0) % MCV (80.0-100.0) fL MCH (25.0-35.0) pg MCHC (31.0-37.0) g/dL RDW (11.5-15.5) % Plt Count (150-450) k/uL Neutrophils % % Lymphocytes % % Monocytes % % Eosinophils % % Basophils % % Neutrophils # (1.3-7.7) k/uL Lymphocytes # (1.0-4.8) k/uL Monocytes # (0-1.0) k/uL Eosinophils # (0-0.7) k/uL Basophils # (0-0.2) k/uL Macrocytosis Sodium 133 L (137-145) mmol/L Potassium 4.3 (3.5-5.1) mmol/L Chloride 101 (98-107) mmol/L Carbon Dioxide 22 (22-30) mmol/L Anion Gap 10 mmol/L BUN 8 (7-17) mg/dL Creatinine 0.61 (0.52-1.04) mg/dL Est GFR (CKD-EPI)AfAm >90 (>60 ml/min/1.73 sqM) Est GFR (CKD-EPI)NonAf >90 (>60 ml/min/1.73 sqM) Glucose 132 H (74-99) mg/dL Lactic Ac Sepsis Rflx Plasma Lactic Acid Roc (0.7-2.0) mmol/L Calcium 9.6 (8.4-10.2) mg/dL Total Bilirubin (0.2-1.3) mg/dL AST (14-36) U/L ALT (4-34) U/L Alkaline Phosphatase (38-126) U/L Total Protein (6.3-8.2) g/dL Albumin (3.5-5.0) g/dL Disposition Is patient prescribed a controlled substance at d/c from ED?: No Time of Disposition: 18:01 Decision to Admit Reason: Admit from EC Decision Date: 05/22/19 Decision Time: 18:02 <Pat Brady L - Last Filed: 05/22/19 18:43> <Bette Hobbs - Last Filed: 05/28/19 13:57> Clinical Impression: Dental infection, Lactic acidosis, Leukocytosis Disposition: ADMITTED IP TO THIS HOSP Condition: Stable
[2019-05-22] MEDS ORDERED: AMPICILLIN-SULBACTAM 3 GM in SODIUM CHLORIDE 0.9% 100 ML IVPB STA (15:31)
[2019-05-22] MEDS ORDERED: DEXAMETHASONE SOD PHOSPHATE 4 MG/ML 1 ML VIAL IV STA (15:31)
[2019-05-22 16:08] LABS: Basophils % (A) 0 %; Eosinophils # (A) 0.1 k/uL (0-0.7); Eosinophils % (A) 1 %; HCT 42.1 % (34.0-46.0); HGB 14.1 gm/dL (11.4-16.0); Lymphocytes # (A) 2.5 k/uL (1.0-4.8); Lymphocytes % (A) 21 %; MCH 34.2 pg (25.0-35.0); MCHC 33.6 g/dL (31.0-37.0); MCV 101.9 fL (80.0-100.0); Macrocytosis Slight; Mean Platelet Volume 8.1; Monocytes # (A) 0.7 k/uL (0-1.0); Monocytes % (A) 6 %; Neutrophils # (A) 8.5 k/uL (1.3-7.7); Neutrophils % (A) 70 %; Platelet Count 216 k/uL (150-450); RBC 4.13 m/uL (3.80-5.40); RDW 14.3 % (11.5-15.5); WBC 12.2 k/uL (3.8-10.6)
[2019-05-22 16:17] LABS: ALT 21 U/L (4-34); AST 37 U/L (14-36); African American GFR (CKD) >90 (>60 ml/min/1.73 sqM); Albumin 4.7 g/dL (3.5-5.0); Alkaline Phosphatase 64 U/L (38-126); Anion Gap 13 mmol/L; Blood Urea Nitrogen 10 mg/dL (7-17); Calcium 9.8 mg/dL (8.4-10.2); Carbon Dioxide 19 mmol/L (22-30); Chloride 102 mmol/L (98-107); Glucose 102 mg/dL (74-99); Non-African American GFR(CKD) >90 (>60 ml/min/1.73 sqM); Potassium 3.8 mmol/L (3.5-5.1); Sodium 134 mmol/L (137-145); Total Bilirubin 0.5 mg/dL (0.2-1.3)
[2019-05-22] MEDS ORDERED: SODIUM CHLORIDE 0.9% 1,000 ML IV ONE (16:27)
--- NOTE | 2019-05-22 16:41 | CT ---
EXAMINATION TYPE: CT soft tissue neck w con DATE OF EXAM: 05/22/2019 COMPARISON: None HISTORY: right side dental pain and swelling CT DLP: 237.5 mGycm CONTRAST: Patient injected with 100 mL of Isovue 300. TECHNIQUE: Axial images at 3 mm thick sections. Reconstructed images in the coronal plane and sagitt al plane are reviewed. FINDINGS: Limited CT sections are obtained the lung apices. The lung apices appear clear. CT neck: The torus tubarius and fossa of [place]muller are normal. Rigging Loft Repairer spaces are normal. Ther e is some mucosal thickening within the posterior left ethmoid air cells and within the right maxilla ry sinus. Remaining paranasal sinuses are clear. Parotid glands appear normal and symmetrical. Submandibular glands, are normal. Parapharyngeal spac es are normal. No suspicious adenopathy is evident. Scattered small lymph nodes are present. There is mild soft tissue swelling over the right neck at the level of the mandible. Inflammatory alvaro nges are within the subcutaneous tissue. Underlying abscess or phlegmon is not identified. The hypopharynx appears within normal limits. Vocal cord level appear symmetrical. Thyroid as visualized is normal. Subglottic airway is normal. Osseous structures are normal. Portions of the lung bryant within the [id number] are normal. IMPRESSIONS: 1. Mild soft tissue swelling right mandibular region. Underlying abscess or phlegmon is not clearly e vident. No osseous abnormality is identified.
[2019-05-22] MEDS ORDERED: NICOTINE 14MG/24HR PATCH TRANSDERM STA (17:42)
[2019-05-22] MEDS ORDERED: NALOXONE 0.4 MG/ML 1 ML VIAL IV PRN (18:00)
[2019-05-22] MEDS ORDERED: NICOTINE 21MG/24HR PATCH TRANSDERM STA ×2 (18:35→20:44)
[2019-05-22] MEDS: SODIUM CHLORIDE 0.9% 1,000 ML IV SCH (19:55)
[2019-05-22] MEDS: MORPHINE SULFATE 4 MG/ML SYRINGE IVP PRN (21:11)
--- NOTE | 2019-05-23 00:04 | P.HPIM ---
History of Present Illness H&P Date: 05/22/19 The patient is a 33-year-old female with a PMH of significant tobacco abuse, alcohol abuse, and very poor dentition with multiple ED visits for dental pain and abscesses presented to the ED complaints of right-sided facial pain and swelling ongoing since yesterday. The patient notes that she suddenly developed the right jaw swelling and discomfort yesterday, with inability to chew on that side due to the pain. She notes that as a result, she her oral intake had been poor. She notes that she has been told multiple times regarding the need for dentist follow-up, though states that she is very afraid of possibly undergoing surgery for removal of her teeth. She denied fever, chills, dysphagia, odynophagia, nausea, vomiting, chest pain, shortness of breath, or dizziness. Upon presentation in the emergency room, her vitals were T-max 100.0, pulse 100, BP 154/111, and she was saturating at 100% on room air. She underwent an extensive evaluation with a CT neck showing right mandibular swelling with no clear underlying abscess noted. Laboratory evaluation revealed a lactate of 2.9, WBC count 12.2, hemoglobin 14.1, platelets 216, sodium 134, potassium 3.8, BUN 10, and creatinine 0.64. She was given a single dose of Unasyn with 2 L normal saline bolus and was admitted for further management. Review of Systems Pertinent positives and negatives as discussed in HPI, a complete review of systems was performed and all other systems are negative. Past Medical History Past Medical History: No Reported History Additional Past Medical History / Comment(s): ovarian cyst History of Any Multi-Drug Resistant Organisms: None Reported Past Surgical History: No Surgical Hx Reported Past Anesthesia/Blood Transfusion Reactions: No Reported Reaction Past Psychological History: No Psychological Hx Reported Smoking Status: Current some day smoker Past Alcohol Use History: Occasional Past Drug Use History: None Reported Medications and Allergies Home Medications Medication Instructions Recorded Confirmed Type No Known Home Medications 05/22/19 05/22/19 History Allergies Allergy/AdvReac Type Severity Reaction Status Date / Time tramadol AdvReac Rapid Verified 05/22/19 19:03 Heart Rate Physical Exam Vitals: Vital Signs Temp Pulse Pulse Resp BP Pulse Ox 05/22/19 20:20 90 20 05/22/19 20:00 98.2 F 102 H 90 20 148/99 98 05/22/19 18:48 98.3 F 93 18 152/103 97 05/22/19 14:53 98.0 F 100 20 154/111 100 Intake and Output 05/22/19 05/22/19 05/22/19 06:59 14:59 22:59 Other: # Voids 1 Weight 65.816 kg 65.816 kg General: non toxic, no distress, appears older than stated age, normal weight Derm: R firm facial swelling at the level of the mandible, no overlying erythema or skin abnormalities noted, warm, dry Head: atraumatic, normocephalic, symmetric Eyes: EOMI, no lid lag, anicteric sclera, pupils equal round reactive to light ENT: Nose and ears atraumatic, no thrush, no pharyngeal erythema Neck: No thyromegaly, no cervical lymphadenopathy, trachea midline, supple Mouth: Very poor dentition Cardiovascular: S1S2 reg, no murmur, positive posterior tibial pulse bilateral, no edema, capillary refill less than 2 seconds Lungs: CTA bilateral, no rhonchi, no rales , no accessory muscle use Abdominal: soft, nontender to palpation, no guarding, no appreciable organomegaly, normal bowel sounds Ext: no gross muscle atrophy, muscle strength 5 out of 5 in all 4 extremities grossly, no contractures, Neuro: CN II-XI grossly intact, light touch intact all 4 extremities, finger to nose within normal limits, Psych: Alert, oriented, appropriate affect Results CBC & Chem 7: 05/22/19 15:40 05/22/19 15:40 Labs: Abnormal Lab Results - Last 24 Hours (Table) 05/22/19 05/22/19 05/22/19 Range/Units 15:40 15:40 15:40 WBC 12.2 H (3.8-10.6) k/uL MCV 101.9 H (80.0-100.0) fL Neutrophils # 8.5 H (1.3-7.7) k/uL Sodium 134 L (137-145) mmol/L Carbon Dioxide 19 L (22-30) mmol/L Glucose 102 H (74-99) mg/dL Plasma Lactic Acid Roc 2.9 H* (0.7-2.0) mmol/L AST 37 H (14-36) U/L Thrombosis Risk Factor Assmnt - Choose All That Apply Each Factor Represents 1 point: Obesity (BMI >25) Other congenital or acquired thrombophilia - If yes, enter type in comment: No Thrombosis Risk Factor Assessment Total Risk Factor Score: 1 Thrombosis Risk Factor Assessment Level: Low Risk Assessment and Plan Plan: R submandibular swelling, likely dental abscess -C/w Ampicillin 3g q6h -F/u blood cultures -Oral surgery consult placed -Advised on importance of outpatient dental f/u -Pain control Lactic acidosis -Resolved Tobacco abuse -Nicotine patch prn EtOH abuse -No history of DTs, or hospitalization for withdrawal -CIWA protocol
[2019-05-23] MEDS: MORPHINE SULFATE 4 MG/ML SYRINGE IVP PRN ×6 (00:56→22:34)
[2019-05-23] MEDS ORDERED: LORazepam 2 MG/ML INJ IV PRN (03:07)
[2019-05-23] MEDS: AMPICILLIN-SULBACTAM 3 GM in SODIUM CHLORIDE 0.9% 100 ML IVPB SCH ×4 (03:52→21:28)
[2019-05-23] MEDS: DEXAMETHASONE SOD PHOSPHATE 10 MG/ML 1 ML VIAL IV SCH ×2 (09:24→15:29)
[2019-05-23] MEDS: SODIUM CHLORIDE 0.9% 1,000 ML IV SCH ×3 (09:25→20:23)
[2019-05-23 09:42] LABS: Basophils % (A) 0 %; Eosinophils % (A) 0 %; HCT 39.8 % (34.0-46.0); HGB 13.4 gm/dL (11.4-16.0); Lymphocytes # (A) 1.1 k/uL (1.0-4.8); Lymphocytes % (A) 8 %; MCH 33.9 pg (25.0-35.0); MCHC 33.8 g/dL (31.0-37.0); MCV 100.3 fL (80.0-100.0); Macrocytosis Slight; Mean Platelet Volume 8.3; Monocytes # (A) 0.6 k/uL (0-1.0); Monocytes % (A) 5 %; Neutrophils # (A) 12.3 k/uL (1.3-7.7); Neutrophils % (A) 86 %; Platelet Count 228 k/uL (150-450); RBC 3.97 m/uL (3.80-5.40); RDW 14.4 % (11.5-15.5); WBC 14.3 k/uL (3.8-10.6)
[2019-05-23 10:08] LABS: African American GFR (CKD) >90 (>60 ml/min/1.73 sqM); Anion Gap 10 mmol/L; Blood Urea Nitrogen 8 mg/dL (7-17); Calcium 9.6 mg/dL (8.4-10.2); Carbon Dioxide 22 mmol/L (22-30); Chloride 101 mmol/L (98-107); Glucose 132 mg/dL (74-99); Non-African American GFR(CKD) >90 (>60 ml/min/1.73 sqM); Potassium 4.3 mmol/L (3.5-5.1); Sodium 133 mmol/L (137-145)
--- NOTE | 2019-05-23 14:48 | P.PN ---
Subjective Progress Note Date: 05/23/19 Principal diagnosis: Dental infection Patient was seen and examined. No acute events overnight. Patient reports continued pain in her right lower jaw. Patient states that the swelling has improved slightly from admission. She denies any chest pain, shortness of breath or palpitations. No nausea or vomiting. No fever or chills. Objective - Vital Signs Vital signs: Vital Signs Temp 97.7 F 05/23/19 07:15 Pulse 82 05/23/19 07:15 Resp 18 05/23/19 07:15 BP 136/93 05/23/19 07:15 Pulse Ox 98 05/23/19 04:00 Intake & Output 05/22/19 05/23/19 05/23/19 18:59 06:59 18:59 Intake Total 480 300 Balance 480 300 Weight 65.816 kg 65.816 kg Intake: Oral 480 200 Other 100 Other: Voiding Method Toilet # Voids 1 - Exam General: [non toxic], [no distress], [appears at stated age] Derm: [warm], [dry] Head: [atraumatic], [normocephalic], [symmetric], [swelling over the right mandible without erythema] Eyes: [EOMI], [no lid lag], [anicteric sclera] Mouth: [no lip lesion], [mucus membranes moist] Cardiovascular: [S1S2 reg], [no murmur], [positive posterior tibial pulse bilateral], Lungs: [Expiratory wheezing bilateral], [no rhonchi, no rales] , [no accessory muscle use] Abdominal: [soft], [ nontender to palpation], [no guarding], [no appreciable organomegaly] Ext: [no gross muscle atrophy], [no edema], [no contractures] Neuro: [no focal neuro deficits] Psych: [Alert], [oriented], [appropriate affect] - Labs CBC & Chem 7: 05/23/19 09:26 05/23/19 09:26 Labs: Abnormal Lab Results - Last 24 Hours (Table) 05/22/19 05/22/19 05/22/19 Range/Units 15:40 15:40 15:40 WBC 12.2 H (3.8-10.6) k/uL MCV 101.9 H (80.0-100.0) fL Neutrophils # 8.5 H (1.3-7.7) k/uL Sodium 134 L (137-145) mmol/L Carbon Dioxide 19 L (22-30) mmol/L Glucose 102 H (74-99) mg/dL Plasma Lactic Acid Roc 2.9 H* (0.7-2.0) mmol/L AST 37 H (14-36) U/L 05/23/19 05/23/19 Range/Units 09:26 09:26 WBC 14.3 H (3.8-10.6) k/uL MCV 100.3 H (80.0-100.0) fL Neutrophils # 12.3 H (1.3-7.7) k/uL Sodium 133 L (137-145) mmol/L Carbon Dioxide (22-30) mmol/L Glucose 132 H (74-99) mg/dL Plasma Lactic Acid Roc (0.7-2.0) mmol/L AST (14-36) U/L Assessment and Plan Assessment: Right submandibular swelling Alcohol abuse Tobacco abuse Leukocytosis Patient has poor dentition. CT of the head shows soft tissue swelling in the right mandibular region. Abscess was not clearly evident. ENT was consulted and added dexamethasone to her medication profile. Pain control with morphine as needed. Plans to continue Unasyn. Follow blood culture. Patient does not appear to be withdrawing acutely. She is on CIWA protocol. She is getting Ativan as needed. Start nicotine patch for history of heavy smoking. Her leukocytosis is likely related to the above process. She does not meet se psis criteria. [Patient with continued right mandibular swelling. She is pending clinical improvement. Likely DC in 1-2 days.]
[2019-05-23] MEDS: LORazepam 2 MG/ML INJ IV PRN (20:23)
[2019-05-24] MEDS: DEXAMETHASONE SOD PHOSPHATE 10 MG/ML 1 ML VIAL IV SCH (00:07)
[2019-05-24] MEDS: LORazepam 2 MG/ML INJ IV PRN ×3 (00:16→23:48)
[2019-05-24] MEDS: AMPICILLIN-SULBACTAM 3 GM in SODIUM CHLORIDE 0.9% 100 ML IVPB SCH ×4 (04:10→20:40)
[2019-05-24] MEDS: MORPHINE SULFATE 4 MG/ML SYRINGE IVP PRN ×4 (06:24→20:39)
[2019-05-24] MEDS ORDERED: NICOTINE 21MG/24HR PATCH TRANSDERM STA (06:39)
--- NOTE | 2019-05-24 08:48 | CONS ---
CONSULTATION DATE OF CONSULTATION: 05/22/2019. CHIEF COMPLAINT: My jaw hurts. HISTORY OF PRESENT ILLNESS: The patient is a 33-year-old female who states that she has had tooth aches in the lower right quadrant off and on for some time. She states that the area has previously swelled and receded. She now states that the pain was followed by swelling of the right mandibular area and she presented to the [facility] ER. She was evaluated clinically and with a CT scan and was then admitted for IV antibiotics and further observation. The patient denies a fever. Has no dysphagia and has no odynophagia. PAST MEDICAL HISTORY: Is unremarkable. MEDICATIONS: Her medications include IV Unasyn. ALLERGIES: She has no known drug allergies. A the CT scan revealed no drainable abscess of the right mandible in addition to multiple carious teeth. [place] white count was [id number]. PHYSICAL EXAMINATION: Head and neck examination revealed [id number] swelling of the right mandible which extended minimally into the right submandibular space. The right submandibular space is tender to palpation in addition to the buccal space. Intraorally, the patient has generalized gross decay and the lower right quadrant exhibits multiple roots and large carious lesions. There is vestibular swelling in the right buccal region which is very tender to palpation. The floor of mouth is soft and nontender. There is no pharyngeal swelling. The uvula is midline. ASSESSMENT: 1. Carious teeth. 2. Necrotic teeth. 3. Right mandibular abscess and right buccal space abscess. PLAN: The patient is to continue the IV Unasyn. She will receive 3 doses of Decadron every 8 hours. I recommended heat to the right mandible in addition to a soft diet. The patient will be re-evaluated in 24 hours and may be discharged to further care in my office or she will remain for another 24 hours for repeat continued IV antibiotics. The plan is to discharge her to my office for the extraction of the offending teeth. MMODL / IJN: [id number] /
--- NOTE | 2019-05-24 11:00 | P.PN ---
Subjective Progress Note Date: 05/24/19 Principal diagnosis: Dental infection Patient was seen and examined. No acute events overnight. Patient reports continued pain in her right lower jaw. Patient states that the swelling has improved slightly from admission. Patient requesting increased pain medication. She denies any chest pain, shortness of breath or palpitations. No nausea or vomiting. No fever or chills. Objective - Vital Signs Vital signs: Vital Signs Temp 97.9 F 05/24/19 06:59 Pulse 80 05/24/19 06:59 Resp 18 05/24/19 06:59 BP 117/80 05/24/19 06:59 Pulse Ox 98 05/24/19 04:00 Intake & Output 05/23/19 05/24/19 05/24/19 17:59 06:59 18:59 Intake Total Balance Intake: Oral Other Other: Voiding Method Toilet # Voids - Exam General: [non toxic], [no distress], [appears at stated age] Derm: [warm], [dry] Head: [atraumatic], [normocephalic], [symmetric], [swelling over the right mandible without erythema] Eyes: [EOMI], [no lid lag], [anicteric sclera] Mouth: [no lip lesion], [mucus membranes moist] Cardiovascular: [S1S2 reg], [no murmur], [positive posterior tibial pulse bilateral], Lungs: [Expiratory wheezing bilateral], [no rhonchi, no rales] , [no accessory muscle use] Abdominal: [soft], [ nontender to palpation], [no guarding], [no appreciable organomegaly] Ext: [no gross muscle atrophy], [no edema], [no contractures] Neuro: [no focal neuro deficits] Psych: [Alert], [oriented], [appropriate affect] - Labs CBC & Chem 7: 05/23/19 09:26 05/23/19 09:26 Labs: Abnormal Lab Results - Last 24 Hours (Table) 05/23/19 Range/Units 09:26 Sodium 133 L (137-145) mmol/L Glucose 132 H (74-99) mg/dL Microbiology - Last 24 Hours (Table) 05/22/19 15:30 Blood Culture - Preliminary Blood No Growth after 24 hours Assessment and Plan Assessment: Right submandibular swelling Alcohol abuse Tobacco abuse Leukocytosis Patient has poor dentition. CT of the head shows soft tissue swelling in the right mandibular region. Abscess was not clearly evident. ENT was consulted and added dexamethasone to her medication profile. Pain control with morphine as needed. Plans to continue Unasyn. Blood cultures are negative at 24 hours. Patient does not appear to be withdrawing acutely. She is on CIWA protocol. She is getting Ativan as needed. Start nicotine patch for history of heavy smoking. Her leukocytosis is likely related to the above process. She does not meet sepsis criteria. [Patient with continued right mandibular swelling. She is pending clinical improvement. Discussed with ENT, plan is to discharge tomorrow straight to ENT clinic. DC tomorrow.]
--- NOTE | 2019-05-24 11:44 | PN ---
PROGRESS NOTE DATE OF SERVICE: 05/24/2019 SUBJECTIVE: My swelling is down and she has decreased pain to the right jaw. She is tolerating a soft diet. OBJECTIVE: The patient exhibits mild soft tissue swelling of the right mandible which is improved. The right submandibular region is mildly tender to palpation with minimal swelling. Intraoral examination reveals swelling of the right buccal vestibule with tenderness, but this is improved over the last 24 hours. The floor of the mouth is soft and nontender. There is no pharyngeal swelling. She exhibits gross caries with multiple abscessed teeth. ASSESSMENT: 1. Right buccal space infection. 2. Abscessed teeth. 3. Carious and nonrestorable teeth. PLAN: The patient will continue IV antibiotics and a soft diet with heat application to the right mandible. The patient will be discharged tomorrow in the a.m. and will follow up in my office at 2:00 pm for the extraction of multiple teeth in the right posterior mandible. The patient was instructed to be n.p.o. and to have a milk truck driver with her. MMALEXL / IJN: [id number] /
[2019-05-24] MEDS: SODIUM CHLORIDE 0.9% 1,000 ML IV SCH (20:44)
[2019-05-25] MEDS: MORPHINE SULFATE 4 MG/ML SYRINGE IVP PRN ×3 (01:02→08:49)
[2019-05-25] MEDS: AMPICILLIN-SULBACTAM 3 GM in SODIUM CHLORIDE 0.9% 100 ML IVPB SCH ×2 (05:04→08:49)
[2019-05-25 07:57] VITALS: BP 132/87; PULSE 66; RESP 18; TEMP 98
[2019-05-25] MEDS ORDERED: HYDROcodone/APAP 5-325MG 1 EACH TAB PO PRN (09:35)
== END 2019-05-25 11:45 | disposition home or self-care (01) | DRG 158 ==
LOC: EC 14:51 → 1SOBS 17:56 → OBSVTOIN 05-24 13:11
PROVIDERS: ADMIT Internal Medicine; ATTEND Internal Medicine
DX: K04.7 Periapical abscess without sinus (principal); E87.2 Acidosis; F17.200 Nicotine dependence, unspecified, uncomplicated; F10.10 Alcohol abuse, uncomplicated; K02.9 Dental caries, unspecified; K04.1 Necrosis of pulp; M27.2 Inflammatory conditions of jaws; Z91.19 Patient's noncompliance with other medical treatment and regimen
CPT/HCPCS: 36415; 70491; 80048; 80053; 83605; 85025; 87040; 96361; 96365; 96375; 99284

== ENCOUNTER 2020-10-19 18:32 | Emergency (ER) | payer OTHER ==
[2020-10-19 19:05] VITALS: BP 148/100; PULSE 88; RESP 16; TEMP 98.2
[2020-10-19] MEDS ORDERED: diphenhydrAMINE 50 MG/ML 1 ML VIAL IM STA (20:18)
[2020-10-19] MEDS ORDERED: FAMOTIDINE 20 MG TAB PO STA (20:18)
[2020-10-19] MEDS ORDERED: ACET/COD 300 MG/30 MG STARTER PACK 6 TAB BTL PO STA (20:18)
[2020-10-19] MEDS ORDERED: methylPREDNISolone SOD SUCCI 125 MG/2 ML VIAL IM ONE (20:18)
--- NOTE | 2020-10-19 21:03 | ED ---
General Adult HPI - General Chief complaint: Allergic Reaction Stated complaint: Bee sting/eye swelling Time Seen by Provider: 10/19/20 20:12 Source: patient Mode of arrival: ambulatory Limitations: no limitations - History of Present Illness Initial comments: 35 year-old female patient presents to the emergency department for evaluation of left eye and facial swelling. States she was stung by at bee in her forehead yesterday. States when she woke today her eye was swollen shut. She reports pain to the face. Denies any fever or chills. Denies history of allergic reaction. She denies any lip, tongue, or throat swelling. Denies any shortness of breath. Denies abdominal pain, nausea, or vomiting. Has taken Benadryl earlier today which didn't seem to help. Denies any other concerns. - Related Data Previous Rx's Medication Instructions Recorded Amoxicillin 500 mg PO Q8H #30 capsule 05/25/19 HYDROcodone/APAP 5-325MG [[place] 1 each PO Q6HR PRN #3 tab 05/25/19 5-325] Famotidine [Pepcid] 20 mg PO DAILY #3 tablet 10/19/20 predniSONE 50 mg PO DAILY #3 tab 10/19/20 Allergies Allergy/AdvReac Type Severity Reaction Status Date / Time tramadol AdvReac Rapid Verified 10/19/20 19:02 Heart Rate Review of Systems ROS Statement: Those systems with pertinent positive or pertinent negative responses have been documented in the HPI. ROS Other: All systems not noted in ROS Statement are negative. Past Medical History Past Medical History: No Reported History Additional Past Medical History / Comment(s): ovarian cyst History of Any Multi-Drug Resistant Organisms: None Reported Past Surgical History: No Surgical Hx Reported Past Anesthesia/Blood Transfusion Reactions: No Reported Reaction Past Psychological History: No Psychological Hx Reported Smoking Status: Current every day smoker Past Alcohol Use History: Occasional Past Drug Use History: None Reported General Exam Limitations: no limitations General appearance: alert, in no apparent distress, other (This is a well- developed, well-nourished adult female patient in no acute distress. Vital signs upon presentation are temperature 98.2F, pulse 88, respirations 16, blood pressure 148/100, pulse ox 96% on room air.) Eye exam: Present: PERRL, EOMI, periorbital swelling (Left periorbital swelling, upper and lower lid. Skin is pink. Warm to touch. Globe is intact with no conjunctival injection or chemosis.). Absent: normal appearance, scleral icterus, conjunctival injection ENT exam: Present: normal exam, normal oropharynx, mucous membranes moist Respiratory exam: Present: normal lung sounds bilaterally. Absent: respiratory distress, wheezes, rales, rhonchi, stridor Cardiovascular Exam: Present: regular rate, normal rhythm, normal heart sounds. Absent: systolic murmur, diastolic murmur, rubs, gallop, clicks GI/Abdominal exam: Present: soft, normal bowel sounds. Absent: distended, tenderness, guarding, rebound, rigid Neurological exam: Present: alert, oriented X3, CN II-XII intact Psychiatric exam: Present: normal affect, normal mood Skin exam: Present: warm, dry, intact, normal color. Absent: rash Course Vital Signs 10/19/20 19:02 Temperature 98.2 F Pulse Rate 88 Respiratory 16 Rate Blood Pressure 148/100 O2 Sat by Pulse 96 Oximetry Medical Decision Making - Medical Decision Making 35-year-old female patient presents for evaluation of left-sided facial and eye swelling after being stung by a bee. Physical examination did reveal periorbital swelling on the left including the upper and lower lid. Globe is intact. Patient is given IM Solu-Medrol and Benadryl. Given oral Pepcid. She'll be given prescriptions for Pepcid and steroids. Instructions take Benadryl every 6 hours as needed. Apply cool compresses to the area. She is given Tylenol codeine starter pack per pain. She is instructed follow up with her primary care physician for recheck in 1-2 days. Return parameters were discussed in detail. She verbalizes understanding and agrees with this plan. Case discussed with my attending Dr. Massey. Disposition Clinical Impression: Bee sting, Eye swelling, left Disposition: HOME SELF-CARE Condition: Good Instructions (If sedation given, give patient instructions): General Allergic Reaction (ED) Additional Instructions: Apply cool compresses. Take Benadryl every 6 hours as needed. Complete steroid and Pepcid dosing. Follow-up with the primary care physician for recheck in 1- 2 days. Return for any new, worsening, or concerning symptoms. Prescriptions: Famotidine [Pepcid] 20 mg PO DAILY #3 tablet predniSONE 50 mg PO DAILY #3 tab Is patient prescribed a controlled substance at d/c from ED?: No Referrals: None,Stated [Primary Care Provider] - 1-2 days Time of Disposition: 20:25
== END 2020-10-19 20:38 | disposition home or self-care (01) ==
LOC: EC 18:32
DX: T63.441A Toxic effect of venom of bees, accidental (unintentional), initial encounter (principal); H57.89 Other specified disorders of eye and adnexa; F17.200 Nicotine dependence, unspecified, uncomplicated
CPT/HCPCS: 96372; 99282

== ENCOUNTER 2020-10-21 13:10 | Emergency (ER) | payer OTHER ==
[2020-10-21 13:24] VITALS: RESP 18; TEMP 98.4
[2020-10-21] MEDS ORDERED: HYDROmorphone 1 MG/ML 1 ML SYRINGE IVP STA (13:44)
--- NOTE | 2020-10-21 13:46 | ED ---
General Adult HPI - General Chief complaint: Back Pain/Injury Stated complaint: low back pain Time Seen by Provider: 10/21/20 13:37 Source: patient, EMS, RN notes reviewed Mode of arrival: EMS Limitations: no limitations - History of Present Illness Initial comments: Patient is a pleasant 35-year-old female presenting to the emergency department complaints of low back pain. No history of similar symptoms previously. Onset of symptoms was this morning. Patient states it is difficult for her to sleep today. Patient denies any specific action causing her symptoms. Patient developed symptoms are getting out of bed. Patient also complains of some abdominal discomfort. Patient requests pain medication. No incontinence or retention of bowel or bladder. No fever. No leg weakness or paresthesias. - Related Data Previous Rx's Medication Instructions Recorded Famotidine [Pepcid] 20 mg PO DAILY #3 tablet 10/19/20 predniSONE 50 mg PO DAILY #3 tab 10/19/20 Cyclobenzaprine [Flexeril] 10 mg PO TID PRN #12 tablet 10/21/20 amLODIPine [Norvasc] 2.5 mg PO DAILY #5 tablet 10/21/20 Allergies Allergy/AdvReac Type Severity Reaction Status Date / Time tramadol AdvReac Rapid Verified 10/21/20 15:42 Heart Rate Review of Systems ROS Statement: Those systems with pertinent positive or pertinent negative responses have been documented in the HPI. ROS Other: All systems not noted in ROS Statement are negative. Constitutional: Denies: fever Eyes: Denies: eye pain ENT: Denies: ear pain Respiratory: Denies: cough Cardiovascular: Denies: chest pain Endocrine: Denies: fatigue Gastrointestinal: Reports: as per HPI, abdominal pain Genitourinary: Denies: dysuria Musculoskeletal: Reports: as per HPI, back pain Skin: Denies: rash Neurological: Denies: weakness, numbness, paresthesias Past Medical History Past Medical History: No Reported History Additional Past Medical History / Comment(s): ovarian cyst History of Any Multi-Drug Resistant Organisms: None Reported Past Surgical History: No Surgical Hx Reported Past Anesthesia/Blood Transfusion Reactions: No Reported Reaction Past Psychological History: No Psychological Hx Reported Smoking Status: Current every day smoker Past Alcohol Use History: Occasional Past Drug Use History: None Reported General Exam Limitations: no limitations General appearance: alert, in no apparent distress Head exam: Present: normocephalic Eye exam: Present: normal appearance Neck exam: Present: normal inspection Respiratory exam: Present: normal lung sounds bilaterally Cardiovascular Exam: Present: regular rate, normal rhythm Expanded Peripheral pulses: 2+: Radial (R), Radial (L), Posterior Tibialis (R), Posterior Tibialis (L), Dorsalis Pedis (R), Dorsalis Pedis (L) GI/Abdominal exam: Present: soft, tenderness (Mild epigastric tenderness). Absent: distended, guarding, rebound, rigid, pulsatile mass Extremities exam: Present: normal inspection, other (tether on right leg) Back exam: Present: tenderness (Mild tenderness L2 through 5 region) Neurological exam: Present: alert. Absent: motor sensory deficit Expanded Sensory exam: Lower Extremity Light Touch: Normal Motor strength exam: RLE: 5, LLE: 5 Psychiatric exam: Present: normal affect, normal mood Skin exam: Present: normal color Course Vital Signs 10/21/20 13:18 Temperature 98.4 F Pulse Rate 77 Respiratory 18 Rate Blood Pressure 166/102 O2 Sat by Pulse 97 Oximetry - Reevaluation(s) Reevaluation #1: 10/21/20 15:55 Patient reevaluated. Prior visits reviewed. Patient is resting comfortably in bed. Abdomen soft and nontender. Case was discussed in detail with Dr. Kennedy who feels patient can be evaluated for liver disease as an outpatient. Patient's blood pressure remains somewhat elevated. Patient feels anxious and requests Ativan. 10/21/20 16:26 Patient reevaluated. Blood pressure improved somewhat with Ativan 160/105. Patient will be given a dose of hydralazine. Nursing staff advised if blood pressure under 180/95 patient can be discharged otherwise notify covering physician. Patient updated on need for follow-up. Medical Decision Making - Lab Data Result diagrams: 10/21/20 13:58 10/21/20 13:58 Lab Results 10/21/20 10/21/20 Range/Units 13:58 13:58 WBC 10.0 (3.8-10.6) k/uL RBC 3.74 L (3.80-5.40) m/uL Hgb 13.4 (11.4-16.0) gm/dL Hct 38.9 (34.0-46.0) % MCV 104.1 H (80.0-100.0) fL MCH 35.9 H (25.0-35.0) pg MCHC 34.5 (31.0-37.0) g/dL RDW 13.8 (11.5-15.5) % Plt Count 222 (150-450) k/uL MPV 8.4 Neutrophils % 76 % Lymphocytes % 16 % Monocytes % 6 % Eosinophils % 1 % Basophils % 0 % Neutrophils # 7.6 (1.3-7.7) k/uL Lymphocytes # 1.6 (1.0-4.8) k/uL Monocytes # 0.6 (0-1.0) k/uL Eosinophils # 0.1 (0-0.7) k/uL Basophils # 0.0 (0-0.2) k/uL Macrocytosis Slight Sodium 139 (137-145) mmol/L Potassium 3.4 L (3.5-5.1) mmol/L Chloride 107 (98-107) mmol/L Carbon Dioxide 25 (22-30) mmol/L Anion Gap 7 mmol/L BUN 13 (7-17) mg/dL Creatinine 0.55 (0.52-1.04) mg/dL Est GFR (CKD-EPI)AfAm >90 (>60 ml/min/1.73 sqM) Est GFR (CKD-EPI)NonAf >90 (>60 ml/min/1.73 sqM) Glucose 97 (74-99) mg/dL Calcium 9.3 (8.4-10.2) mg/dL Total Bilirubin 0.3 (0.2-1.3) mg/dL AST 79 H (14-36) U/L ALT 36 H (4-34) U/L Alkaline Phosphatase 79 (38-126) U/L Total Protein 6.8 (6.3-8.2) g/dL Albumin 4.0 (3.5-5.0) g/dL Amylase 57 (30-110) U/L Lipase 316 H (23-300) U/L HCG, Qual Not Detected - Radiology Data Radiology results: report reviewed (Computed tomography scan of abdomen and pelvis does have concerns for hepatomegaly with severe irregular genius en hancement left liver lobe. Bile duct dilated 1.2 cm.) Disposition Clinical Impression: Low back pain, Hepatomegaly, Hypertension Disposition: HOME SELF-CARE Condition: Stable Instructions (If sedation given, give patient instructions): Acute Low Back Pain (ED), Hypertension (ED) Additional Instructions: Please do follow-up with your primary care physician in the beginning of the week for recheck. Have primary care physician recheck blood pressure. Also have primary care physician review CT results. He will likely need to see a drier transfer car operator for further evaluation regarding your liver. Prescriptions for muscle relaxer and blood pressure medication have been sent to pharmacy. Return for increased pain, weakness, abdominal pain, vomiting, fevers, worsening symptoms or other concerns. Prescriptions: Cyclobenzaprine [Flexeril] 10 mg PO TID PRN #12 tablet PRN Reason: Pain amLODIPine [Norvasc] 2.5 mg PO DAILY #5 tablet Is patient prescribed a controlled substance at d/c from ED?: No Referrals: Jon Blum MD [Primary Care Provider] - 1-2 days Ankita Liu MD [STAFF PHYSICIAN] - 1-2 days Time of Disposition: 16:28
[2020-10-21 14:09] LABS: Basophils % (A) 0 %; Eosinophils # (A) 0.1 k/uL (0-0.7); Eosinophils % (A) 1 %; HCT 38.9 % (34.0-46.0); HGB 13.4 gm/dL (11.4-16.0); Lymphocytes # (A) 1.6 k/uL (1.0-4.8); Lymphocytes % (A) 16 %; MCH 35.9 pg (25.0-35.0); MCHC 34.5 g/dL (31.0-37.0); MCV 104.1 fL (80.0-100.0); Macrocytosis Slight; Mean Platelet Volume 8.4; Monocytes # (A) 0.6 k/uL (0-1.0); Monocytes % (A) 6 %; Neutrophils # (A) 7.6 k/uL (1.3-7.7); Neutrophils % (A) 76 %; Platelet Count 222 k/uL (150-450); RBC 3.74 m/uL (3.80-5.40); RDW 13.8 % (11.5-15.5)
[2020-10-21 14:18] LABS: ALT 36 U/L (4-34); AST 79 U/L (14-36); African American GFR (CKD) >90 (>60 ml/min/1.73 sqM); Alkaline Phosphatase 79 U/L (38-126); Amylase 57 U/L (30-110); Anion Gap 7 mmol/L; Blood Urea Nitrogen 13 mg/dL (7-17); Calcium 9.3 mg/dL (8.4-10.2); Carbon Dioxide 25 mmol/L (22-30); Chloride 107 mmol/L (98-107); Glucose 97 mg/dL (74-99); Lipase 316 U/L (23-300); Non-African American GFR(CKD) >90 (>60 ml/min/1.73 sqM); Potassium 3.4 mmol/L (3.5-5.1); Sodium 139 mmol/L (137-145); Total Bilirubin 0.3 mg/dL (0.2-1.3); Total Protein 6.8 g/dL (6.3-8.2)
[2020-10-21 14:21] LABS: HCG,Qualitative Serum Not Detected
--- NOTE | 2020-10-21 15:19 | CT ---
EXAMINATION TYPE: CT abdomen pelvis w con DATE OF EXAM: 10/21/2020 COMPARISON: NONE HISTORY: 35-year-old female low back pain and abdominal pain . TECHNIQUE: Contiguous axial scanning of the abdomen and pelvis following administration of 100 ml Iso kristina 300 IV contrast. Delayed images through the kidneys and coronal/sagittal reconstructions perform ed. CT DLP: 717.8 mGycm Automated exposure control for dose reduction was used. FINDINGS: Heart normal size without pericardial effusion. Liver enlarged measuring 22.2 cm. Marked heterogeneous enhancement of the left liver lobe. This heter ogeneity persists on the delayed kidney images. Portal venous system is patent. Bile duct is dilated up to 1.2 cm. But the gallbladder is collapsed. Adrenal glands, kidneys, spleen, pancreas within normal limits. No dilated small bowel, free fluid, or free air. No mesenteric or retroperitoneal lymphadenopathy. Normal appendix. [id number]-[id number] stool in the colon. Some circumferential wall thickening involving a short segment of distal sigmoid colon, refer to axial images 50 and 59. No pericolonic inflammatory change. Mild circumferential bladder wall thickening. Both ovaries are visualized. Uterus is anteverted. Trace cul-de-sac free fluid. Multiple pelvic fluid was. No pelvic lymphadenopathy. Bones: No osseous destructive process. IMPRESSION: 1. HEPATOMEGALY (22.2 CM) WITH SEVERE HETEROGENEOUS ENHANCEMENT OF THE LEFT LIVER LOBE. CORRELATE FOR HEPATITIS OR OTHER NONSPECIFIC HEPATOCELLULAR DISEASE. VASCULAR INSUFFICIENCY IS ATYPICAL IN THE [facility] BECAUSE OF ITS DUAL BLOOD SUPPLY. 2. DILATED BILE DUCT UP TO 1.2 CM. CORRELATE WITH ALKALINE PHOSPHATASE AND BILIRUBIN LEVELS TO EXCLUD E BILIARY OBSTRUCTION SUCH FROM AMPULLARY STENOSIS OR A RADIOLUCENT CALCULUS. NO DISCRETE FILLING DEFECT IS CLEARLY IDENTIFIED. 3. MILD CIRCUMFERENTIAL BLADDER WALL THICKENING COULD REPRESENT CYSTITIS. 4. ADDITIONAL CIRCUMFERENTIAL WALL THICKENING INVOLVING A SHORT SEGMENT OF DISTAL SIGMOID COLON .. CO RRELATE TO EXCLUDE NONSPECIFIC COLITIS. 5. TRACE CUL-DE-SAC FREE FLUID LIKELY PHYSIOLOGIC.
[2020-10-21] MEDS ORDERED: LORazepam 2 MG/ML INJ IV STA (15:55)
[2020-10-21] MEDS ORDERED: hydrALAZINE HCL 20 MG/ML 1 ML VIAL IVP STA (16:25)
[2020-10-21] MEDS ORDERED: ORPHENADRINE 30 MG/ML 2 ML VIAL IVP STA (16:30)
[2020-10-21 17:24] VITALS: BP 153/98; PULSE 67
== END 2020-10-21 17:24 | disposition home or self-care (01) ==
LOC: EC 13:10
DX: M54.5 Low back pain (principal); R16.0 Hepatomegaly, not elsewhere classified; I10 Essential (primary) hypertension; F17.200 Nicotine dependence, unspecified, uncomplicated; Z88.5 Allergy status to narcotic agent; Z79.52 Long term (current) use of systemic steroids; Z79.899 Other long term (current) drug therapy
CPT/HCPCS: 36415; 80053; 82150; 83690; 85025; 84703; 74177; 96374; 96375 ×3; 99285; J2060; J0360; J2360; J1170; Q9967

== ENCOUNTER 2021-06-17 01:25 | Emergency (ER) | payer OTHER ==
[2021-06-17 02:03] VITALS: RESP 18
[2021-06-17] MEDS ORDERED: KETOROLAC 15 MG/ML 1 ML VIAL IM STA (03:19)
--- NOTE | 2021-06-17 03:26 | ED ---
Back Pain HPI - General Source: patient, RN notes reviewed Limitations: no limitations - History of Present Illness MD Complaint: back pain <William Duran - Last Filed: 06/17/21 04:42> <Delvin Kaur - Last Filed: 06/17/21 09:18> - General Chief Complaint: Back Pain/Injury Stated Complaint: Back Pain Time Seen by Provider: 06/17/21 03:11 - History of Present Illness Initial Comments: This is a pleasant 35-year-old female with a history of chronic and recurrent low back pain. Patient states that she is been going on for several months. Patient was previously seen here. She denies any problems with urination or bowel movements. She denies any fever or chills. No rashes or lesions. No vaginal discharge. Denies chance of . Patient also complaining of a strange feeling in both arms which has been there for several days. She states that she has painful type feeling in both forearms. Denies any neck pain. No injury. Gait disturbance. No leg pain. Patient does admit to daily alcohol intake. Daily cigarette smoker. Denies illicit drug abuse. (William Duran) - Related Data Previous Rx's Medication Instructions Recorded Famotidine [Pepcid] 20 mg PO DAILY #3 tablet 10/19/20 predniSONE 50 mg PO DAILY #3 tab 10/19/20 Cyclobenzaprine [Flexeril] 10 mg PO TID PRN #12 tablet 10/21/20 amLODIPine [Norvasc] 2.5 mg PO DAILY #5 tablet 10/21/20 Cyclobenzaprine [Flexeril] 10 mg PO TID PRN #20 tab 06/17/21 Etodolac [Lodine] 400 mg PO BID PRN #20 tablet 06/17/21 Allergies Allergy/AdvReac Type Severity Reaction Status Date / Time tramadol AdvReac Rapid Verified 06/17/21 02:03 Heart Rate Review of Systems ROS Other: All systems not noted in ROS Statement are negative. <William Duran - Last Filed: 06/17/21 04:42> ROS Other: All systems not noted in ROS Statement are negative. <Delvin Kaur - Last Filed: 06/17/21 09:18> ROS Statement: Those systems with pertinent positive or pertinent negative responses have been documented in the HPI. Past Medical History Past Medical History: No Reported History Additional Past Medical History / Comment(s): ovarian cyst History of Any Multi-Drug Resistant Organisms: None Reported Past Surgical History: No Surgical Hx Reported Past Anesthesia/Blood Transfusion Reactions: No Reported Reaction Past Psychological History: No Psychological Hx Reported Smoking Status: Current every day smoker Past Alcohol Use History: Occasional Past Drug Use History: None Reported <William Duran - Last Filed: 06/17/21 04:42> General Exam Limitations: no limitations General appearance: alert, in no apparent distress Head exam: Present: atraumatic, normocephalic, normal inspection Eye exam: Present: normal appearance, PERRL, EOMI. Absent: scleral icterus, conjunctival injection, periorbital swelling ENT exam: Present: normal exam, normal oropharynx, mucous membranes moist Neck exam: Present: normal inspection, full ROM. Absent: tenderness, meningismus, lymphadenopathy Respiratory exam: Present: normal lung sounds bilaterally. Absent: respiratory distress, wheezes, rales, rhonchi, stridor Cardiovascular Exam: Present: regular rate, normal rhythm, normal heart sounds. Absent: systolic murmur, diastolic murmur, rubs, gallop, clicks GI/Abdominal exam: Present: soft, normal bowel sounds. Absent: distended, tenderness, guarding, rebound, rigid Extremities exam: Present: normal inspection, full ROM, normal capillary refill, other (Full range of motion all major joints. Full muscle strength on major muscle groups.). Absent: tenderness, pedal edema, joint swelling, calf tenderness Back exam: Present: normal inspection, full ROM, tenderness (Mild bilateral paraspinal tenderness lumbar area), paraspinal tenderness. Absent: CVA tenderne ss (L), muscle spasm, vertebral tenderness, rash noted Neurological exam: Present: alert, oriented X3, CN II-XII intact Psychiatric exam: Present: normal affect, normal mood Skin exam: Present: warm, dry, intact, normal color. Absent: rash, cyanosis, diaphoretic, erythema, urticaria, vesicles, petechiae, pallor, mottled, abrasion <William Duran - Last Filed: 06/17/21 04:42> - General Exam Comments Initial Comments: Patient does not appear to be ill or toxic. (William Duran) Course Vital Signs 06/17/21 06/17/21 01:59 05:10 Temperature 99.0 F 97.5 F L Pulse Rate 94 81 Respiratory 18 18 Rate Blood Pressure 152/93 162/110 O2 Sat by Pulse 98 99 Oximetry Medical Decision Making <William Duran - Last Filed: 06/17/21 04:42> - Lab Data Result diagrams: 06/17/21 04:10 06/17/21 04:10 <Delvin Kaur - Last Filed: 06/17/21 09:18> - Medical Decision Making Patient does not appear to be ill or toxic. Baseline laboratory work ordered. There is no injury. There was no evidence of infectious process or vascular insult. The case was discussed in detail with ED attending physician. Presentation, findings, treatment plan discussed in detail. Patient was told to return to the ER for any signs or symptoms worsen. Told to return immediately if any other problems arise. All questions answered. Treatment plan discussed. Patient in agreement Every effort has been made to ensure accuracy of this dictation. However, due to the limitations of electronic medical records and dictation devices, errors in charting still occur. -There are no red flags for concerning back pathology. Specifically: -No history of cancer, this is not a mass effect, MRI not indicated. -No anticoagulation, this is not a bleed. -No fevers, no IVDU, this is not an infectious process. -No trauma, no bony pain, x-rays are not indicated. -With a normal neuro exam, and no urinary or bowel retention or incontinence, there is no clinical sign of motor defect or cauda equina - MRI is not indicated at this point. -No pulsating abdominal mass or risk factors for AAA. -Pain is relieved with rest, which is also less concerning. -I do not believe that x-rays or emergent MRI is indicated at this time. -We will treat symptomatically and discharge home with follow up instructions. -Stretching/strengthening exercise given to patient and they will be referred to physical therapy -Patient is instructed to use [id number] analgesics as directed on packaging for pain. (William Duran) - Lab Data Lab Results 06/17/21 06/17/21 06/17/21 Range/Units 04:10 04:10 04:10 WBC 10.1 (3.8-10.6) k/uL RBC 4.56 (3.80-5.40) m/uL Hgb 15.7 (11.4-16.0) gm/dL Hct 47.5 H (34.0-46.0) % MCV 104.2 H (80.0-100.0) fL MCH 34.5 (25.0-35.0) pg MCHC 33.1 (31.0-37.0) g/dL RDW 13.5 (11.5-15.5) % Plt Count 248 (150-450) k/uL MPV 7.9 Neutrophils % 75 % Lymphocytes % 15 % Monocytes % 5 % Eosinophils % 2 % Basophils % 1 % Neutrophils # 7.6 (1.3-7.7) k/uL Lymphocytes # 1.6 (1.0-4.8) k/uL Monocytes # 0.5 (0-1.0) k/uL Eosinophils # 0.2 (0-0.7) k/uL Basophils # 0.1 (0-0.2) k/uL Macrocytosis Slight Sodium (137-145) mmol/L Potassium (3.5-5.1) mmol/L Chloride (98-107) mmol/L Carbon Dioxide (22-30) mmol/L Anion Gap mmol/L BUN (7-17) mg/dL Creatinine (0.52-1.04) mg/dL Est GFR (CKD-EPI)AfAm (>60 ml/min/1.73 sqM) Est GFR (CKD-EPI)NonAf (>60 ml/min/1.73 sqM) Glucose (74-99) mg/dL Calcium (8.4-10.2) mg/dL Magnesium (1.6-2.3) mg/dL Total Bilirubin (0.2-1.3) mg/dL AST (14-36) U/L ALT (4-34) U/L Alkaline Phosphatase (38-126) U/L Creatine Kinase (30-135) U/L Total Protein (6.3-8.2) g/dL Albumin (3.5-5.0) g/dL Urine Color Yellow Urine Appearance Cloudy H (Clear) Urine pH 5.5 (5.0-8.0) Ur Specific [place] 1.022 (1.001-1.035) Urine Protein 1+ H (Negative) Urine Glucose (UA) Negative (Negative) Urine Ketones Negative (Negative) Urine Blood Moderate H (Negative) Urine Nitrite Positive H (Negative) Urine Bilirubin Negative (Negative) Urine Urobilinogen <2.0 (<2.0) mg/dL Ur Leukocyte Esterase Negative (Negative) Urine RBC 1 (0-5) /hpf Urine WBC 6 H (0-5) /hpf Ur Squamous Epith Cells 5 H (0-4) /hpf Urine Bacteria Moderate H (None) /hpf Urine Mucus Many H (None) /hpf Urine HCG, Qual Not Detected (Not Detectd) 06/17/21 Range/Units 04:10 WBC (3.8-10.6) k/uL RBC (3.80-5.40) m/uL Hgb (11.4-16.0) gm/dL Hct (34.0-46.0) % MCV (80.0-100.0) fL MCH (25.0-35.0) pg MCHC (31.0-37.0) g/dL RDW (11.5-15.5) % Plt Count (150-450) k/uL MPV Neutrophils % % Lymphocytes % % Monocytes % % Eosinophils % % Basophils % % Neutrophils # (1.3-7.7) k/uL Lymphocytes # (1.0-4.8) k/uL Monocytes # (0-1.0) k/uL Eosinophils # (0-0.7) k/uL Basophils # (0-0.2) k/uL Macrocytosis Sodium 140 (137-145) mmol/L Potassium 3.9 (3.5-5.1) mmol/L Chloride 105 (98-107) mmol/L Carbon Dioxide 21 L (22-30) mmol/L Anion Gap 14 mmol/L BUN 8 (7-17) mg/dL Creatinine 0.60 (0.52-1.04) mg/dL Est GFR (CKD-EPI)AfAm >90 (>60 ml/min/1.73 sqM) Est GFR (CKD-EPI)NonAf >90 (>60 ml/min/1.73 sqM) Glucose 93 (74-99) mg/dL Calcium 9.7 (8.4-10.2) mg/dL Magnesium 1.5 L (1.6-2.3) mg/dL Total Bilirubin 0.8 (0.2-1.3) mg/dL AST 127 H (14-36) U/L ALT 42 H (4-34) U/L Alkaline Phosphatase 97 (38-126) U/L Creatine Kinase 55 (30-135) U/L Total Protein 9.2 H (6.3-8.2) g/dL Albumin 5.1 H (3.5-5.0) g/dL Urine Color Urine Appearance (Clear) Urine pH (5.0-8.0) Ur Specific [place] (1.001-1.035) Urine Protein (Negative) Urine Glucose (UA) (Negative) Urine Ketones (Negative) Urine Blood (Negative) Urine Nitrite (Negative) Urine Bilirubin (Negative) Urine Urobilinogen (<2.0) mg/dL Ur Leukocyte Esterase (Negative) Urine RBC (0-5) /hpf Urine WBC (0-5) /hpf Ur Squamous Epith Cells (0-4) /hpf Urine Bacteria (None) /hpf Urine Mucus (None) /hpf Urine HCG, Qual (Not Detectd) Disposition <William Duran - Last Filed: 06/17/21 04:42> Is patient prescribed a controlled substance at d/c from ED?: No Time of Disposition: 05:30 <Delvin Kaur - Last Filed: 06/17/21 09:18> Clinical Impression: Low back pain, Myalgia Disposition: HOME SELF-CARE Condition: Stable Instructions (If sedation given, give patient instructions): Musculoskeletal Pain (ED), Chronic Back Pain (DC) Additional Instructions: Follow-up with your regular physician as directed. Return to the ER immediately if any symptoms worsen, new symptoms arise, or any other problems develop. Prescriptions: Cyclobenzaprine [Flexeril] 10 mg PO TID PRN #20 tab PRN Reason: Spasms Etodolac [Lodine] 400 mg PO BID PRN #20 tablet PRN Reason: Pain Referrals: None,Stated [Primary Care Provider] - 1-2 days
[2021-06-17 04:44] LABS: Basophils # (A) 0.1 k/uL (0-0.2); Basophils % (A) 1 %; Eosinophils # (A) 0.2 k/uL (0-0.7); Eosinophils % (A) 2 %; HCT 47.5 % (34.0-46.0); HGB 15.7 gm/dL (11.4-16.0); Lymphocytes # (A) 1.6 k/uL (1.0-4.8); Lymphocytes % (A) 15 %; MCH 34.5 pg (25.0-35.0); MCHC 33.1 g/dL (31.0-37.0); MCV 104.2 fL (80.0-100.0); Macrocytosis Slight; Mean Platelet Volume 7.9; Monocytes # (A) 0.5 k/uL (0-1.0); Monocytes % (A) 5 %; Neutrophils # (A) 7.6 k/uL (1.3-7.7); Neutrophils % (A) 75 %; Platelet Count 248 k/uL (150-450); RBC 4.56 m/uL (3.80-5.40); RDW 13.5 % (11.5-15.5); WBC 10.1 k/uL (3.8-10.6)
[2021-06-17 04:51] LABS: Appearance,Urine Cloudy (Clear); Bacteria,Urine Moderate /hpf; Bilirubin,Urine Negative (Negative); Blood,Urine Moderate (Negative); Color,Urine Yellow; Glucose,Urine (UA) Negative (Negative); Ketones,Urine Negative (Negative); Leukocyte Esterase,Urine Negative (Negative); Mucus,Urine Many /hpf; Nitrite,Urine Positive (Negative); PH, Urine 5.5 (5.0-8.0); Protein,Urine 1+ (Negative); RBC,Urine 1 /hpf (0-5); Specific Gravity,Urine 1.022 (1.001-1.035); Squamous Epithelial Cell,Urine 5 /hpf (0-4); Urobilinogen,Urine <2.0 mg/dL (<2.0); WBC,Urine 6 /hpf (0-5)
[2021-06-17 05:12] VITALS: BP 162/110; PULSE 81; TEMP 97.5
[2021-06-17 05:12] LABS: ALT 42 U/L (4-34); AST 127 U/L (14-36); African American GFR (CKD) >90 (>60 ml/min/1.73 sqM); Albumin 5.1 g/dL (3.5-5.0); Alkaline Phosphatase 97 U/L (38-126); Anion Gap 14 mmol/L; Blood Urea Nitrogen 8 mg/dL (7-17); Calcium 9.7 mg/dL (8.4-10.2); Carbon Dioxide 21 mmol/L (22-30); Chloride 105 mmol/L (98-107); Creatine Kinase 55 U/L (30-135); Glucose 93 mg/dL (74-99); Magnesium 1.5 mg/dL (1.6-2.3); Non-African American GFR(CKD) >90 (>60 ml/min/1.73 sqM); Potassium 3.9 mmol/L (3.5-5.1); Sodium 140 mmol/L (137-145); Total Bilirubin 0.8 mg/dL (0.2-1.3); Total Protein 9.2 g/dL (6.3-8.2)
[2021-06-17] MEDS ORDERED: ACET/COD 300 MG/30 MG STARTER PACK 6 TAB BTL PO STA (05:35)
[2021-06-17] MEDS ORDERED: MAGNESIUM OXIDE 400 MG TAB PO STA (05:35)
== END 2021-06-17 06:30 | disposition home or self-care (01) ==
LOC: EC 01:25
DX: M54.50 Low back pain, unspecified (principal); M79.10 Myalgia, unspecified site; F17.200 Nicotine dependence, unspecified, uncomplicated
CPT/HCPCS: 36415; 80053; 82550; 83735; 85025; 81001; 81025; 99283; 96372; J1885

== ENCOUNTER 2021-08-22 19:53 | Emergency (ER) | payer OTHER ==
[2021-08-22 19:59] VITALS: BP 130/78; PULSE 119; RESP 16; TEMP 98.3
--- NOTE | 2021-08-22 21:39 | XR ---
EXAMINATION TYPE: XR foot complete RT DATE OF EXAM: 08/22/2021 COMPARISON: NONE HISTORY: Foot pain TECHNIQUE: 3 views FINDINGS: Metatarsals are intact. I see no fracture nor dislocation. There are no erosions. Toes appe ar intact. The joint spaces are fairly normal. IMPRESSION: Negative right foot exam. No fracture.
[2021-08-22] MEDS ORDERED: HYDROcodone/APAP 7.5-325MG 1 EACH TAB PO ONE (21:42)
--- NOTE | 2021-08-22 22:15 | ED ---
General Adult HPI - General Chief complaint: Extremity Injury, Lower Stated complaint: Fall-R foot injury Time Seen by Provider: 08/22/21 20:28 Source: patient, RN notes reviewed Mode of arrival: wheelchair Limitations: no limitations - History of Present Illness Initial comments: 36-year-old female presents to the emergency department for evaluation of injury to the right foot sustained yesterday. Patient states she was walking through her garden barefoot when she stepped on an uneven area twisting her foot. Patient states she has had difficulty bearing weight today and has had pain with ambulation. States she attempted to keep her foot elevated and applied ice prior to arrival with no improvement. Denies any other injuries at this time. - Related Data Previous Rx's Medication Instructions Recorded Famotidine [Pepcid] 20 mg PO DAILY #3 tablet 10/19/20 predniSONE 50 mg PO DAILY #3 tab 10/19/20 Cyclobenzaprine [Flexeril] 10 mg PO TID PRN #12 tablet 10/21/20 amLODIPine [Norvasc] 2.5 mg PO DAILY #5 tablet 10/21/20 Cyclobenzaprine [Flexeril] 10 mg PO TID PRN #20 tab 06/17/21 Etodolac [Lodine] 400 mg PO BID PRN #20 tablet 06/17/21 Ibuprofen [Motrin] 600 mg PO Q8HR PRN #20 tab 08/22/21 Allergies Allergy/AdvReac Type Severity Reaction Status Date / Time tramadol AdvReac Rapid Verified 08/22/21 19:55 Heart Rate Review of Systems ROS Statement: Those systems with pertinent positive or pertinent negative responses have been documented in the HPI. ROS Other: All systems not noted in ROS Statement are negative. Past Medical History Past Medical History: No Reported History Additional Past Medical History / Comment(s): ovarian cyst History of Any Multi-Drug Resistant Organisms: None Reported Past Surgical History: No Surgical Hx Reported Past Anesthesia/Blood Transfusion Reactions: No Reported Reaction Past Psychological History: No Psychological Hx Reported Smoking Status: Current every day smoker Past Alcohol Use History: Occasional Past Drug Use History: None Reported General Exam Limitations: physical limitation (pain with weight bearing on right lower extremity) General appearance: alert, in no apparent distress Eye exam: Present: normal appearance. Absent: scleral icterus, conjunctival injection, periorbital swelling, periorbital tenderness Respiratory exam: Present: normal lung sounds bilaterally. Absent: respiratory distress, wheezes, rales, rhonchi, stridor Cardiovascular Exam: Present: regular rate, normal rhythm, normal heart sounds. Absent: systolic murmur, diastolic murmur, rubs, gallop, clicks GI/Abdominal exam: Present: soft, normal bowel sounds. Absent: distended, tenderness, guarding, rebound, rigid Right Lower Leg exam: Present: normal inspection, full ROM. Absent: tenderness, swelling, erythema Ankle exam: Present: normal inspection, full ROM. Absent: tenderness, swelling Foot/Toe exam: Present: tenderness (tenderness upon palpation of the plantar surface of the foot). Absent: swelling, calcaneal tenderness, tenderness at base of 5th metatarsal Neurovascular tendon exam: Present: no vascular compromise. Absent: motor deficit, sensory deficit, tendon deficit, foot drop Gait: observed and limited by pain Neurological exam: Present: alert, oriented X3 Psychiatric exam: Present: normal affect, normal mood Skin exam: Present: warm, dry, intact Course Vital Signs 08/22/21 19:55 Temperature 98.3 F Pulse Rate 119 H Respiratory 16 Rate Blood Pressure 130/78 O2 Sat by Pulse 96 Oximetry Procedures - Orthopedic Splinting/Casting Injury #1 Side: right Lower Extremity Injury Location: foot Lower Extremity Immobilizer: Johnson wrap Other Orthopedic Equipment: other (patient has crutches at home; no indication to remain non-weight brearing.) Medical Decision Making - Medical Decision Making This is a 36-year-old female with no significant past medical history who presents to the emergency Department with complaints of pain and injury to the right foot. Upon exam, patient does appear somewhat uncomfortable. She has mild swelling to the right foot with tenderness upon palpation of the plantar surface. She has no obvious deformity or contusion. X-ray is unremarkable. Johnson wrap was applied. Patient has crutches at home for which she is given permission to use for a limited time. Patient was given one [place] will present in the emergency department with improvement. She will be discharged home to follow up with her PCP for recheck this week. Instructed on RICE acronym. Motrin prescribed. Return parameters discussed in detail. Patient verbalizes understanding and agrees with this plan. Attending: Kai. - Radiology Data Radiology results: report reviewed, image reviewed X-ray of the right foot was obtained. Report was reviewed in its entirety. Impression per Dr. Lu is negative right foot exam. No fracture. Disposition Clinical Impression: Right foot injury Disposition: HOME SELF-CARE Condition: Stable Instructions (If sedation given, give patient instructions): Foot Sprain (ED) Additional Instructions: Keep foot elevated while at rest. Apply Johnson wrap for compression. Utilize ice for no more than 20 minutes per hour. May take Motrin if needed for discomfort. May use crutches at home for the next 2-3 days. Follow-up with your PCP for a recheck if pain persists. Prescriptions: Ibuprofen [Motrin] 600 mg PO Q8HR PRN #20 tab PRN Reason: Pain Is patient prescribed a controlled substance at d/c from ED?: No Referrals: Jon Blum MD [Primary Care Provider] - 1-2 days Time of Disposition: 22:16
== END 2021-08-22 22:26 | disposition home or self-care (01) ==
LOC: EC 19:53
DX: S99.921A Unspecified injury of right foot, initial encounter (principal); F17.200 Nicotine dependence, unspecified, uncomplicated; Z88.5 Allergy status to narcotic agent; W19.XXXA Unspecified fall, initial encounter; Y93.01 Activity, walking, marching and hiking
CPT/HCPCS: 29515; 99284

== ENCOUNTER 2021-12-05 16:42 | Emergency (ER) | payer OTHER ==
[2021-12-05 17:10] VITALS: RESP 18; TEMP 98.3
[2021-12-05] MEDS ORDERED: PENICILLIN VK 500MG STARTER 4 TAB BTL PO STA (19:17)
[2021-12-05] MEDS ORDERED: IBUPROFEN 600 MG STARTER PACK 4 TAB BTL PO STA (19:17)
[2021-12-05] MEDS ORDERED: ACET/COD 300 MG/30 MG STARTER PACK 6 TAB BTL PO STA (19:17)
--- NOTE | 2021-12-05 19:19 | ED ---
ENT HPI - General Chief complaint: Dental/Oral Stated complaint: dental pain Time Seen by Provider: 12/05/21 19:02 Source: patient, RN notes reviewed Mode of arrival: ambulatory - History of Present Illness Initial comments: This is a pleasant 36-year-old female presents to the emergency department for exacerbation of chronic dental infection. Patient has been here several times previously. Patient states she knows she needs to go to the dentist but is scared to go because she does not like needles or procedures. Patient continues to smoke cigarettes. Patient complaining of pain to left upper molar area. No difficulty with swallowing. No sore throat. No neck stiffness. No drainage. No vision or hearing changes. No ear pain or hearing changes. No headache, no fever or chills, no changes in vision or hearing, no sore throat or difficulty with speech, no neck pain, no chest pain or shortness of breath, no abdominal pain, no nausea or vomiting, no changes in urination or bowel movements, no numbness or tingling, no extremity pain, no skin rashes or lesions. Past medical, surgical, social, and family history reviewed. MD complaint: tooth pain - Related Data Previous Rx's Medication Instructions Recorded Famotidine [Pepcid] 20 mg PO DAILY #3 tablet 10/19/20 predniSONE 50 mg PO DAILY #3 tab 10/19/20 Cyclobenzaprine [Flexeril] 10 mg PO TID PRN #12 tablet 10/21/20 amLODIPine [Norvasc] 2.5 mg PO DAILY #5 tablet 10/21/20 Cyclobenzaprine [Flexeril] 10 mg PO TID PRN #20 tab 06/17/21 Etodolac [Lodine] 400 mg PO BID PRN #20 tablet 06/17/21 Ibuprofen [Motrin] 600 mg PO Q8HR PRN #20 tab 08/22/21 Acetaminophen Tab [Tylenol Tab] 500 mg PO Q6H PRN #24 tablet 12/05/21 Ibuprofen [Motrin] 600 mg PO Q8HR PRN #30 tab 12/05/21 Penicillin V Potassium [Pen Vee K] 500 mg PO QID #36 tablet 12/05/21 Allergies Allergy/AdvReac Type Severity Reaction Status Date / Time tramadol AdvReac Rapid Verified 12/05/21 17:10 Heart Rate Review of Systems ROS Statement: Those systems with pertinent positive or pertinent negative responses have been documented in the HPI. ROS Other: All systems not noted in ROS Statement are negative. Past Medical History Past Medical History: No Reported History Additional Past Medical History / Comment(s): ovarian cyst History of Any Multi-Drug Resistant Organisms: None Reported Past Surgical History: No Surgical Hx Reported Past Anesthesia/Blood Transfusion Reactions: No Reported Reaction Past Psychological History: No Psychological Hx Reported Smoking Status: Current every day smoker Past Alcohol Use History: Occasional Past Drug Use History: None Reported General Exam - General Exam Comments Initial Comments: Patient does not appear to be ill or toxic. Vital signs reviewed. Patient in no significant distress when I enter the room General appearance: alert, in no apparent distress Head exam: Present: atraumatic, normocephalic, normal inspection Eye exam: Present: normal appearance, PERRL, EOMI. Absent: scleral icterus, conjunctival injection, periorbital swelling ENT exam: Present: mucous membranes moist, TM's normal bilaterally, normal external ear exam. Absent: mucous membranes dry Expanded Ear exam: Present: normal external inspection Mouth exam: Absent: drooling, trismus, muffled voice, tongue normal, tongue elevation, laceration Teeth exam: Present: dental caries (Extensive dental caries formation throughout with multiple caries and eroded into the dental pulp.), dental tenderness # (Adjacent to tooth #13 and 14), gingival enlargement (Gingival inflammation noted. No evidence of abscess at this time) Throat exam: normal inspection. negative: tonsillar erythema, tonsillomegaly, tonsillar exudate, R peritonsillar mass, L peritonsillar mass Neck exam: Present: normal inspection. Absent: tenderness, meningismus, lymphadenopathy Respiratory exam: Present: normal lung sounds bilaterally. Absent: respiratory distress, wheezes, rales, rhonchi, stridor Cardiovascular Exam: Present: regular rate, normal rhythm, normal heart sounds. Absent: systolic murmur, diastolic murmur, rubs, gallop, clicks GI/Abdominal exam: Present: soft. Absent: distended, tenderness, guarding, rebound, rigid Extremities exam: Present: normal inspection, full ROM, normal capillary refill. Absent: tenderness, pedal edema, joint swelling, calf tenderness Back exam: Present: normal inspection Neurological exam: Present: alert, oriented X3, CN II-XII intact Psychiatric exam: Present: normal affect, normal mood Skin exam: Present: warm, dry, intact, normal color. Absent: rash Course Vital Signs 12/05/21 17:08 Temperature 98.3 F Pulse Rate 94 Respiratory 18 Rate Blood Pressure 125/82 O2 Sat by Pulse 98 Oximetry Procedures - Smoking Cessation Time Spent Discussing Smoking Cessation w/Patient (Minutes): 3 Patient Acknowledges Need for Cessation: Yes Medical Decision Making - Medical Decision Making Chronic dental pain. Patient educated on smoking cessation as well as dental hygiene. Patient informed that she needs to see a dentist as soon as possible. We'll treat with Tylenol with Codeine starter pack, then acetaminophen and anti- inflammatory medication. Penicillin VK. Patient was told to return to the ER for any signs or symptoms worsen. Told to return immediately if any other problems arise. All questions answered. Treatment plan discussed. Patient in agreement Every effort has been made to ensure accuracy of this dictation. However, due to the limitations of electronic medical records and dictation devices, errors in charting still occur. Customer Assistance Associate Dr. Quinn Disposition Clinical Impression: Pain due to dental caries, Cigarette smoker, Chronic dental infection Disposition: HOME SELF-CARE Condition: Stable Instructions (If sedation given, give patient instructions): How to Stop Smoking (ED), Dental Abscess (ED), Toothache (ED) Additional Instructions: Do not take the acetaminophen with codeine at the same time as the regular acetaminophen. Make an appointment with a dentist as soon as possible. Follow- up with your regular physician as directed. Return to the ER immediately if any symptoms worsen, new symptoms arise, or any other problems develop. Prescriptions: Ibuprofen [Motrin] 600 mg PO Q8HR PRN #30 tab PRN Reason: Pain Penicillin V Potassium [Pen Vee K] 500 mg PO QID #36 tablet Acetaminophen Tab [Tylenol Tab] 500 mg PO Q6H PRN #24 tablet PRN Reason: Pain Is patient prescribed a controlled substance at d/c from ED?: No Referrals: Jon Blum MD [Primary Care Provider] - 1-2 days Time of Disposition: 19:19
[2021-12-05 19:47] VITALS: BP 124/80; PULSE 91
== END 2021-12-05 19:47 | disposition home or self-care (01) ==
LOC: EC 16:42
DX: K02.9 Dental caries, unspecified (principal); K04.7 Periapical abscess without sinus; F17.210 Nicotine dependence, cigarettes, uncomplicated; Z88.6 Allergy status to analgesic agent
CPT/HCPCS: 99282

== ENCOUNTER 2021-12-08 22:50 | Emergency (ER) | payer OTHER ==
[2021-12-08 23:06] VITALS: BP 158/97; PULSE 100; RESP 20; TEMP 98.3
[2021-12-09] MEDS ORDERED: HYDROmorphone 1 MG/ML 1 ML SYRINGE IM STA (00:16)
[2021-12-09] MEDS ORDERED: ONDANSETRON ODT 4 MG TAB PO STA (00:16)
[2021-12-09] MEDS ORDERED: ACET/COD 300 MG/30 MG STARTER PACK 6 TAB BTL PO STA (00:18)
--- NOTE | 2021-12-09 00:18 | ED ---
ENT HPI - General Chief complaint: Dental/Oral Stated complaint: Dental Pain Time Seen by Provider: 12/08/21 23:38 Source: patient Mode of arrival: ambulatory Limitations: no limitations - History of Present Illness Initial comments: Patient is a 36-year-old female presenting with chief complaint of dental abscess. Patient was seen here recently for the same complaint, she was placed on penicillin VK. Patient states that swelling has come worse, she has been taking her antibiotic as prescribed. Patient is requesting pain medication. Patient has several known dental injuries and caries. Patient states that she struggles with going to the dentist out of fear. Patient is having no difficulty swallowing or breathing. No chest pain, palpitations, weakness, fever, chills, neck pain or stiffness, headache, vision or hearing changes. - Related Data Previous Rx's Medication Instructions Recorded Famotidine [Pepcid] 20 mg PO DAILY #3 tablet 10/19/20 predniSONE 50 mg PO DAILY #3 tab 10/19/20 Cyclobenzaprine [Flexeril] 10 mg PO TID PRN #12 tablet 10/21/20 amLODIPine [Norvasc] 2.5 mg PO DAILY #5 tablet 10/21/20 Cyclobenzaprine [Flexeril] 10 mg PO TID PRN #20 tab 06/17/21 Etodolac [Lodine] 400 mg PO BID PRN #20 tablet 06/17/21 Ibuprofen [Motrin] 600 mg PO Q8HR PRN #20 tab 08/22/21 Acetaminophen Tab [Tylenol Tab] 500 mg PO Q6H PRN #24 tablet 12/05/21 Ibuprofen [Motrin] 600 mg PO Q8HR PRN #30 tab 12/05/21 Penicillin V Potassium [Pen Vee K] 500 mg PO QID #36 tablet 12/05/21 Amoxic-Pot Clav 875-125Mg 1 tab PO BID 7 Days #14 tab 12/09/21 [Augmentin 875-125] Allergies Allergy/AdvReac Type Severity Reaction Status Date / Time No Known Allergies Allergy Verified 12/08/21 23:06 Review of Systems ROS Statement: Those systems with pertinent positive or pertinent negative responses have been documented in the HPI. ROS Other: All systems not noted in ROS Statement are negative. Past Medical History Past Medical History: No Reported History Additional Past Medical History / Comment(s): ovarian cyst History of Any Multi-Drug Resistant Organisms: None Reported Past Surgical History: No Surgical Hx Reported Past Anesthesia/Blood Transfusion Reactions: No Reported Reaction Past Psychological History: No Psychological Hx Reported Smoking Status: Current every day smoker Past Alcohol Use History: Occasional Past Drug Use History: None Reported General Exam Limitations: no limitations General appearance: alert, in no apparent distress Head exam: Present: atraumatic, normocephalic, normal inspection Eye exam: Present: normal appearance, EOMI. Absent: scleral icterus, periorbital swelling Expanded Mouth exam: Present: tongue normal. Absent: drooling, trismus, muffled voice Teeth exam: Present: dental caries (Multiple), fractured tooth # (Multiple), dental tenderness # (Multiple), gingival enlargement (Large abscess seen on the roof of the mouth on the left side) Throat exam: normal inspection Neck exam: Present: normal inspection, full ROM. Absent: tenderness Neurological exam: Present: alert, oriented X3, CN II-XII intact Psychiatric exam: Present: normal affect, normal mood Skin exam: Present: warm, dry, intact, normal color. Absent: rash Course Vital Signs 12/08/21 23:04 Temperature 98.3 F Pulse Rate 100 Respiratory 20 Rate Blood Pressure 158/97 O2 Sat by Pulse 98 Oximetry Medical Decision Making - Medical Decision Making Patient is a 36-year-old female presenting with chief complaint of dental abscess. Patient was seen here 2 days ago for the same issue, states the pain is swelling is worsening. On examination there is a large abscess on the roof of the mouth on the left side where the majority of her pain is. There are multiple fractured teeth and dental caries. Patient states she is fearful of the dentist which is why she has not resolved these dental issues yet. 18-gauge needle was used to express some purulent material from the abscess. Wound is continuing to drain, patient does not wish to needle aspirate any further. Patient is provided with pain medication and antibiotic and switched to Augmentin. Follow-up with dentist. Report back to ER with any new or worsening symptoms. Discussed return parameters and answered all questions. Patient conveyed verbal understanding and agreed to the plan. I discussed this case in detail with my attending Dr. Kaur Disposition Clinical Impression: Dental abscess Disposition: HOME SELF-CARE Condition: Good Instructions (If sedation given, give patient instructions): Dental Abscess (ED) Additional Instructions: Follow-up with dentist. Report back to ER with any new or worsening symptoms. Take medication as prescribed. Discontinue penicillin VK and start taking Augmentin prescribed at today's visit. Prescriptions: Amoxic-Pot Clav 875-125Mg [Augmentin 875-125] 1 tab PO BID 7 Days #14 tab Is patient prescribed a controlled substance at d/c from ED?: No Referrals: Jon Blum MD [Primary Care Provider] - 1-2 days Time of Disposition: 00:18
== END 2021-12-09 00:37 | disposition home or self-care (01) ==
LOC: EC 22:50
DX: K04.7 Periapical abscess without sinus (principal); F17.200 Nicotine dependence, unspecified, uncomplicated
CPT/HCPCS: 96372 ×3; 99282 ×2; J1170

== ENCOUNTER 2023-05-22 19:01 | Emergency (ER) | payer OTHER ==
[2023-05-22 19:30] VITALS: BP 138/93; PULSE 103; RESP 18; TEMP 98.9
--- NOTE | 2023-05-22 19:33 | ED ---
ENT HPI - General Chief complaint: Dental/Oral Stated complaint: dental pain Time Seen by Provider: 05/22/23 19:18 Source: patient Mode of arrival: ambulatory - History of Present Illness Initial comments: 37-year-old female presenting to the ED with a chief complaint of dental pain. Notes known dental issues and is supposed to get "all" her teeth taken out however patient notes that she has a needle phobia so she has been putting this off. States last night started to experience pain of her lower left teeth. No fever or chills. No dysphagia. No dyspnea. No other complaints at this time. - Related Data Previous Rx's Medication Instructions Recorded Famotidine [Pepcid] 20 mg PO DAILY #3 tablet 10/19/20 predniSONE 50 mg PO DAILY #3 tab 10/19/20 Cyclobenzaprine [Flexeril] 10 mg PO TID PRN #12 tablet 10/21/20 amLODIPine [Norvasc] 2.5 mg PO DAILY #5 tablet 10/21/20 Cyclobenzaprine [Flexeril] 10 mg PO TID PRN #20 tab 06/17/21 Etodolac [Lodine] 400 mg PO BID PRN #20 tablet 06/17/21 Ibuprofen [Motrin] 600 mg PO Q8HR PRN #20 tab 08/22/21 Acetaminophen Tab [Tylenol Tab] 500 mg PO Q6H PRN #24 tablet 12/05/21 Ibuprofen [Motrin] 600 mg PO Q8HR PRN #30 tab 12/05/21 Penicillin V Potassium [Pen Vee K] 500 mg PO QID #36 tablet 12/05/21 Amoxic-Pot Clav 875-125Mg 1 tab PO BID 7 Days #14 tab 12/09/21 [Augmentin 875-125] Allergies Allergy/AdvReac Type Severity Reaction Status Date / Time No Known Allergies Allergy Verified 12/08/21 23:06 Review of Systems ROS Statement: Those systems with pertinent positive or pertinent negative responses have been documented in the HPI. ROS Other: All systems not noted in ROS Statement are negative. Past Medical History Past Medical History: No Reported History Additional Past Medical History / Comment(s): ovarian cyst History of Any Multi-Drug Resistant Organisms: None Reported Past Surgical History: No Surgical Hx Reported Past Anesthesia/Blood Transfusion Reactions: No Reported Reaction Past Psychological History: No Psychological Hx Reported Smoking Status: Current every day smoker Past Alcohol Use History: Occasional Past Drug Use History: None Reported General Exam General appearance: alert, in no apparent distress ENT exam: Present: other (Poor dentition with multiple dental cavities. No significant oropharyngel swelling. ) Neck exam: Present: normal inspection Respiratory exam: Present: normal lung sounds bilaterally Cardiovascular Exam: Present: regular rate, normal rhythm GI/Abdominal exam: Present: soft Neurological exam: Present: alert, oriented X3 Skin exam: Present: warm, dry Course Vital Signs 05/22/23 19:04 Temperature 98.9 F Pulse Rate 103 H Respiratory 18 Rate Blood Pressure 138/93 O2 Sat by Pulse 97 Oximetry Medical Decision Making - Medical Decision Making Was pt. sent in by a medical professional or institution (, [facility], ICD 9 CODER, urgent care, hospital, or snf...) When possible be specific @ -No Did you speak to anyone other than the patient for history (EMS, parent, family, police, friend...)? What history was obtained from this source @ -No Did you review nursing and triage notes (agree or disagree)? Why? @ -I reviewed and agree with nursing and triage notes Were old charts reviewed (outside hosp., previous admission, EMS record, old EKG, old radiological studies, urgent care reports/EKG's, snf records)? Report findings @ -No old charts were reviewed Differential Diagnosis (chest pain, altered mental status, abdominal pain women, abdominal pain men, vaginal bleeding, weakness, fever, dyspnea, syncope, headache, dizziness, GI bleed, back pain, seizure, CVA, palpatations, mental health, musculoskeletal)? @ -Alvaro's angina, ANUG, periapical abscess. This not meant to be an all- inclusive list. EKG interpreted by me (3pts min.). @ -None X-rays interpreted by me (1pt min.). @ -None done CT interpreted by me (1pt min.). @ -None done U/S interpreted by me (1pt. min.). @ -None done What testing was considered but not performed or refused? (CT, X-rays, U/S, labs)? Why? @ -None What meds were considered but not given or refused? Why? @ -None Did you discuss the management of the patient with other professionals (professionals i.e. , PA, ICD 9 CODER, lab, RT, psych nurse, executive secretary social welfare, survey rodman, teacher, environmental compliance officer, case resolution specialist)? Give summary @ -No Was smoking cessation discussed for >3mins.? @ -No Was critical care preformed (if so, how long)? @ -No Were there social determinants of health that impacted care today? How? (Homelessness, low income, unemployed, alcoholism, drug addiction, transportation, low edu. Level, literacy, decrease access to med. care, intermediate, rehab)? @ -No Was there de-escalation of care discussed even if they declined (Discuss DNR or withdrawal of care, Hospice)? DNR status @ -No What co-morbidities impacted this encounter? (DM, HTN, Smoking, COPD, CAD, Cancer, CVA, ARF, Chemo, Hep., AIDS, mental health diagnosis, sleep apnea, morbid obesity)? @ -None Was patient admitted / discharged? Hospital course, mention meds given and route, prescriptions, significant lab abnormalities, going to OR and other pertinent info. @ -Discharge 37-year-old female presenting to the ED with complaints of dental pain. Exam does show multiple cavities. No drainable abscesses on exam. No significant oropharyngeal swelling on exam. At this time vital signs stable afebrile. Provided prescription for Augmentin, Motrin, Tylenol. Advise close follow-up with her dentist. Discussed return precautions with patient who verbalized agreement. Undiagnosed new problem with uncertain prognosis? @ -No Drug Therapy requiring intensive monitoring for toxicity (Heparin, Nitro, Insulin, Cardizem)? @ -No Were any procedures done? @ -No Diagnosis/symptom? @ -Dental pain Acute, or Chronic, or Acute on Chronic? @ -Acute Uncomplicated (without systemic symptoms) or Complicated (systemic symptoms)? @ -Uncomplicated Side effects of treatment? @ -No Exacerbation, Progression, or Severe Exacerbation? @ -No Poses a threat to life or bodily function? How? (Chest pain, [place], [place], pneumonia, PE, COPD, DKA, ARF, appy, cholecystitis, CVA, Diverticulitis, Homicidal, Suicidal, threat to staff... and all critical care pts) @ -No Disposition Clinical Impression: Pain, dental Disposition: HOME SELF-CARE Condition: Good Instructions (If sedation given, give patient instructions): Toothache (ED) Additional Instructions: Please return to the Emergency Department if symptoms worsen or any other concerns. Please follow-up with your dentist. Is patient prescribed a controlled substance at d/c from ED?: No Referrals: None,Stated [Primary Care Provider] - 1-2 days Time of Disposition: 19:35
[2023-05-22] MEDS: ACET/COD 300 MG/30 MG STARTER PACK 6 TAB BTL PO STA (19:40)
[2023-05-23] MEDS: AMOXIC-POT CLAV 875MG STARTER PACK 2 TAB BTL PO STA (17:34)
== END 2023-05-22 19:43 | disposition home or self-care (01) ==
LOC: EC 19:01
DX: K02.9 Dental caries, unspecified (principal); F17.200 Nicotine dependence, unspecified, uncomplicated
CPT/HCPCS: 99282

== ENCOUNTER 2023-12-27 21:55 | Emergency (ER) | payer SELFPAY ==
[2023-12-27 22:08] VITALS: TEMP 98.3
--- NOTE | 2023-12-27 23:10 | ED ---
ENT HPI - General Chief complaint: Dental/Oral Stated complaint: Abcess Tooth Time Seen by Provider: 12/27/23 23:09 Source: patient, RN notes reviewed Mode of arrival: ambulatory Limitations: no limitations - History of Present Illness Initial comments: 38-year-old female presented to the ER with a chief complaint of dental pain. Patient states her teeth are in very poor condition and she is following up with a dentist to have all her teeth removed. She states she recently had a loss in her family and she has not been able to follow-up due to this. She reports past couple days she has been having an increase of pain into her left upper molars. She denies any drainage. She reports extreme pain causing her to have difficulty eating. Reports swelling to cheek. No fevers, throat swelling, tongue swelling, difficulty breathing or secretions. No other complaints. - Related Data Previous Rx's Medication Instructions Recorded Famotidine [Pepcid] 20 mg PO DAILY #3 tablet 10/19/20 predniSONE 50 mg PO DAILY #3 tab 10/19/20 Cyclobenzaprine [Flexeril] 10 mg PO TID PRN #12 tablet 10/21/20 amLODIPine [Norvasc] 2.5 mg PO DAILY #5 tablet 10/21/20 Cyclobenzaprine [Flexeril] 10 mg PO TID PRN #20 tab 06/17/21 Etodolac [Lodine] 400 mg PO BID PRN #20 tablet 06/17/21 Ibuprofen [Motrin] 600 mg PO Q8HR PRN #20 tab 08/22/21 Acetaminophen Tab [Tylenol Tab] 500 mg PO Q6H PRN #24 tablet 12/05/21 Ibuprofen [Motrin] 600 mg PO Q8HR PRN #30 tab 12/05/21 Penicillin V Potassium [Pen Vee K] 500 mg PO QID #36 tablet 12/05/21 Amoxic-Pot Clav 875-125Mg 1 tab PO BID 7 Days #14 tab 12/09/21 [Augmentin 875-125] Acetaminophen Tab [Tylenol] 500 mg PO Q6H PRN #40 tablet 05/22/23 Amoxic-Pot Clav 875-125Mg 1 tab PO Q12HR 7 Days #14 tab 05/22/23 [Augmentin 875-125] Ibuprofen [Motrin] 600 mg PO Q8HR PRN #20 tab 05/22/23 Amoxic-Pot Clav 875-125Mg 1 tab PO Q12HR #20 tab 12/27/23 [Augmentin 875-125] Ibuprofen [Motrin] 800 mg PO Q6HR #30 tab 12/27/23 Allergies Allergy/AdvReac Type Severity Reaction Status Date / Time No Known Allergies Allergy Verified 12/27/23 22:08 Review of Systems ROS Statement: Those systems with pertinent positive or pertinent negative responses have been documented in the HPI. ROS Other: All systems not noted in ROS Statement are negative. Past Medical History Past Medical History: No Reported History Additional Past Medical History / Comment(s): ovarian cyst History of Any Multi-Drug Resistant Organisms: None Reported Past Surgical History: No Surgical Hx Reported Past Anesthesia/Blood Transfusion Reactions: No Reported Reaction Past Psychological History: No Psychological Hx Reported Smoking Status: Current every day smoker Past Alcohol Use History: Occasional Past Drug Use History: None Reported General Exam Limitations: no limitations General appearance: alert, in no apparent distress ENT exam: Present: TM's normal bilaterally, other (Poor dental hygiene with multiple dental caries and fractured teeth. No drainable abscess identified. Mild edema to right cheek.) Neck exam: Present: normal inspection. Absent: tenderness, meningismus, lymphadenopathy Respiratory exam: Present: normal lung sounds bilaterally. Absent: respiratory distress, wheezes, rales, rhonchi, stridor Cardiovascular Exam: Present: regular rate, normal rhythm, normal heart sounds. Absent: systolic murmur, diastolic murmur, rubs, gallop, clicks Neurological exam: Present: alert, oriented X3, CN II-XII intact Skin exam: Present: warm, dry, intact, normal color. Absent: rash Course Vital Signs 12/27/23 12/27/23 22:07 23:20 Temperature 98.3 F Pulse Rate 95 91 Respiratory 18 20 Rate Blood Pressure 141/87 144/84 O2 Sat by Pulse 97 98 Oximetry Medical Decision Making - Medical Decision Making Was pt. sent in by a medical professional or institution (, PA, LASER CUTTER, urgent care, hospital, or long term...) When possible be specific @ -No Did you speak to anyone other than the patient for history (EMS, parent, family, police, friend...)? What history was obtained from this source @ -No Did you review nursing and triage notes (agree or disagree)? Why? @ -I reviewed and agree with nursing and triage notes Were old charts reviewed (outside hosp., previous admission, EMS record, old EKG, old radiological studies, urgent care reports/EKG's, long term records)? Report findings @ -No old charts were reviewed Differential Diagnosis (chest pain, altered mental status, abdominal pain women, abdominal pain men, vaginal bleeding, weakness, fever, dyspnea, syncope, headache, dizziness, GI bleed, back pain, seizure, CVA, palpatations, mental health, musculoskeletal)? @ -Dental caries, fractured tooth, dental abscess, Alvaro angina This is not meant to be all-inclusive EKG interpreted by me (3pts min.). @ -None done X-rays interpreted by me (1pt min.). @ -None done CT interpreted by me (1pt min.). @ -None done U/S interpreted by me (1pt. min.). @ -None done What testing was considered but not performed or refused? (CT, X-rays, U/S, labs)? Why? @ -None What meds were considered but not given or refused? Why? @ -None Did you discuss the management of the patient with other professionals (professionals i.e. , PA, LASER CUTTER, lab, RT, psych nurse, social services aide, geoint analyst, teacher, chief medical officer, human services case manager)? Give summary @ -No Was smoking cessation discussed for >3mins.? @ -No Was critical care preformed (if so, how long)? @ -No Were there social determinants of health that impacted care today? How? (Homelessness, low income, unemployed, alcoholism, drug addiction, transportation, low edu. Level, literacy, decrease access to med. care, [facility], rehab)? @ -No Was there de-escalation of care discussed even if they declined (Discuss DNR or withdrawal of care, Hospice)? DNR status @ -No What co-morbidities impacted this encounter? (DM, HTN, Smoking, COPD, CAD, Cancer, CVA, ARF, Chemo, Hep., AIDS, mental health diagnosis, sleep apnea, morbid obesity)? @ -None Was patient admitted / discharged? Hospital course, mention meds given and route, prescriptions, significant lab abnormalities, going to OR and other pertinent info. @ -Discharge. 38-year-old female presented to ER with a chief complaint of dental pain. History and physical exam completed. Vitals within normal limits. Patient in no signs of acute distress. Exam remarkable for multiple dental caries with fractured teeth. Mild edema to right cheek. No drainable abscess. No tongue or oropharynx edema. No hot potato voice. Patient will be started on Augmentin, first dose in the ER. Tylenol 3 and ibuprofen given for pain control in the ER. Patient discharged with a starter pack of Tylenol 3 and a prescription of ibuprofen. Advise close follow-up with a dentist, referral given. Strict return parameters discussed. Patient discharged in stable c ondition with follow-up to PCP and dentist. Patient verbally expressed understanding and agreement with care plan. Case discussed with ED attending, Dr. Kaur. Undiagnosed new problem with uncertain prognosis? @ -No Drug Therapy requiring intensive monitoring for toxicity (Heparin, Nitro, Insulin, Cardizem)? @ -No Were any procedures done? @ -No Diagnosis/symptom? @ -Dental pain Acute, or Chronic, or Acute on Chronic? @ -Acute Uncomplicated (without systemic symptoms) or Complicated (systemic symptoms)? @ -Uncomplicated Side effects of treatment? @ -No Exacerbation, Progression, or Severe Exacerbation? @ -No Poses a threat to life or bodily function? How? (Chest pain, USA, [place], pneumonia, PE, COPD, DKA, ARF, appy, cholecystitis, CVA, Diverticulitis, Homicidal, Suicidal, threat to staff... and all critical care pts) @ -No Disposition Clinical Impression: Dental infection Disposition: HOME SELF-CARE Condition: Stable Instructions (If sedation given, give patient instructions): Toothache (ED) Additional Instructions: Follow-up with a dentist. Complete full course of antibiotics. Return to the ER for any new or worsening symptoms. Prescriptions: Amoxic-Pot Clav 875-125Mg [Augmentin 875-125] 1 tab PO Q12HR #20 tab Ibuprofen [Motrin] 800 mg PO Q6HR #30 tab Is patient prescribed a controlled substance at d/c from ED?: No Referrals: None,Stated [Primary Care Provider] - 1-2 days Sivakumar Mccloud DDS [STAFF PHYSICIAN] - 1-2 days Nyasia Hoyos DDS [STAFF PHYSICIAN] - 1-2 days Time of Disposition: 23:10
[2023-12-27] MEDS: ACET/COD 300 MG/30 MG STARTER PACK 6 TAB BTL PO STA (23:15)
[2023-12-27] MEDS: IBUPROFEN 800 MG TAB PO STA (23:16)
[2023-12-27] MEDS: AMOXIC-POT CLAV 875-125MG 1 EACH TAB PO STA (23:17)
[2023-12-27] MEDS: Acetaminophen-Codeine 300-30mg TAB PO STA (23:17)
[2023-12-27 23:23] VITALS: BP 144/84; PULSE 91; RESP 20
== END 2023-12-27 23:20 | disposition home or self-care (01) ==
LOC: EC 21:55
CPT/HCPCS: 99283

== ENCOUNTER 2024-05-22 10:16 | Emergency (ER) | payer OTHER ==
[2024-05-22 10:28] VITALS: RESP 18
--- NOTE | 2024-05-22 10:40 | ED ---
ENT HPI - General Chief complaint: Dental/Oral Stated complaint: Dental pain Time Seen by Provider: 05/22/24 10:27 Source: patient, RN notes reviewed Mode of arrival: ambulatory Limitations: no limitations - History of Present Illness Initial comments: This is a 38-year-old female presenting with right upper dental pain (11/25) since yesterday. Patient endorses history of poor dentition. Denies [id number] medication use. Denies purulent discharge, oropharyngeal edema, dyspnea/SOB, fever. MD complaint: tooth pain Onset/Timin -: days(s) 1 - Damaged Severity scale (1-10): 9 Consistency: constant Context- Dental: history of dental caries, poor dental care - Related Data Previous Rx's Medication Instructions Recorded Famotidine [Pepcid] 20 mg PO DAILY #3 tablet 10/19/20 predniSONE 50 mg PO DAILY #3 tab 10/19/20 Cyclobenzaprine [Flexeril] 10 mg PO TID PRN #12 tablet 10/21/20 amLODIPine [Norvasc] 2.5 mg PO DAILY #5 tablet 10/21/20 Cyclobenzaprine [Flexeril] 10 mg PO TID PRN #20 tab 06/17/21 Etodolac [Lodine] 400 mg PO BID PRN #20 tablet 06/17/21 Ibuprofen [Motrin] 600 mg PO Q8HR PRN #20 tab 08/22/21 Acetaminophen Tab [Tylenol Tab] 500 mg PO Q6H PRN #24 tablet 12/05/21 Ibuprofen [Motrin] 600 mg PO Q8HR PRN #30 tab 12/05/21 Penicillin V Potassium [Pen Vee K] 500 mg PO QID #36 tablet 12/05/21 Amoxic-Pot Clav 875-125Mg 1 tab PO BID 7 Days #14 tab 12/09/21 [Augmentin 875-125] Acetaminophen Tab [Tylenol] 500 mg PO Q6H PRN #40 tablet 05/22/23 Amoxic-Pot Clav 875-125Mg 1 tab PO Q12HR 7 Days #14 tab 05/22/23 [Augmentin 875-125] Ibuprofen [Motrin] 600 mg PO Q8HR PRN #20 tab 05/22/23 Amoxic-Pot Clav 875-125Mg 1 tab PO Q12HR #20 tab 12/27/23 [Augmentin 875-125] Ibuprofen [Motrin] 800 mg PO Q6HR #30 tab 12/27/23 Amoxic-Pot Clav 875-125Mg 1 tab PO Q12HR #20 tab 05/22/24 [Augmentin 875-125] Chlorhexidine Gluconate [Peridex] 15 ml PO BID #473 ml 05/22/24 Ibuprofen [Motrin] 800 mg PO Q8H PRN #20 tab 05/22/24 Allergies Allergy/AdvReac Type Severity Reaction Status Date / Time No Known Allergies Allergy Verified 05/22/24 10:28 Review of Systems ROS Statement: Those systems with pertinent positive or pertinent negative responses have been documented in the HPI. ROS Other: All systems not noted in ROS Statement are negative. Past Medical History Past Medical History: No Reported History Additional Past Medical History / Comment(s): ovarian cyst History of Any Multi-Drug Resistant Organisms: None Reported Past Surgical History: No Surgical Hx Reported Past Anesthesia/Blood Transfusion Reactions: No Reported Reaction Past Psychological History: No Psychological Hx Reported Smoking Status: Current every day smoker Past Alcohol Use History: Occasional Past Drug Use History: None Reported General Exam Limitations: no limitations General appearance: alert, in no apparent distress Head exam: Present: atraumatic, normocephalic, other (Positive right mandibular facial edema with with point tenderness. Positive trismus) Eye exam: Present: normal appearance, PERRL, EOMI. Absent: scleral icterus, conjunctival injection, periorbital swelling ENT exam: Present: normal exam, mucous membranes dry, other (Positive right upper wisdom tooth tenderness with tongue depressor palpation. Generalized poor dentition with several missing teeth.) Neck exam: Present: normal inspection, lymphadenopathy (Right submandibular lymphadenopathy with tenderness). Absent: tenderness, meningismus Respiratory exam: Present: normal lung sounds bilaterally. Absent: respiratory distress, wheezes, rales, rhonchi, stridor Cardiovascular Exam: Present: regular rate, normal rhythm, normal heart sounds. Absent: systolic murmur, diastolic murmur, rubs, gallop, clicks GI/Abdominal exam: Present: soft, normal bowel sounds. Absent: distended, tenderness, guarding, rebound, rigid Extremities exam: Present: normal inspection, full ROM, normal capillary refill. Absent: tenderness, pedal edema, joint swelling, calf tenderness Back exam: Present: normal inspection Neurological exam: Present: alert, oriented X3, CN II-XII intact Psychiatric exam: Present: normal affect, normal mood Skin exam: Present: warm, dry, intact, normal color. Absent: rash Course Vital Signs 05/22/24 05/22/24 10:26 12:02 Temperature 98.6 F 98.4 F Pulse Rate 99 91 Respiratory 18 18 Rate Blood Pressure 125/74 120/77 O2 Sat by Pulse 99 99 Oximetry Procedures - Nerve Block Consent Obtained: verbal consent Local Anesthetic Used: Marcaine 0.25% Amount of anesthesia used: 2 Side: right Intraoral Nerve Block: supraperiosteal Procedure Successful: Yes Complications: none Patient Tolerated Procedure: well Medical Decision Making - Medical Decision Making Was pt. sent in by a medical professional or institution (, PA, NON DESTRUCTIVE EVALUATION MANAGER, urgent care, hospital, or long-term...) When possible be specific @ -No Did you speak to anyone other than the patient for history (EMS, parent, family, police, friend...)? What history was obtained from this source @ -No Did you review nursing and triage notes (agree or disagree)? Why? @ -I reviewed and agree with nursing and triage notes Were old charts reviewed (outside hosp., previous admission, EMS record, old EKG, old radiological studies, urgent care reports/EKG's, long-term records)? Report findings @ -No old charts were reviewed Differential Diagnosis (chest pain, altered mental status, abdominal pain women, abdominal pain men, vaginal bleeding, weakness, fever, dyspnea, syncope, headache, dizziness, GI bleed, back pain, seizure, CVA, palpatations, mental health, musculoskeletal)? @ -Dental abscess, gingivitis, ANUG, Vincent's angina, dental mynor, parotitis, this is not an exhaustive list EKG interpreted by me (3pts min.). @ -Not done X-rays interpreted by me (1pt min.). @ -None done CT interpreted by me (1pt min.). @ -None done U/S interpreted by me (1pt. min.). @ -None done What testing was considered but not performed or refused? (CT, X-rays, U/S, labs)? Why? @ -None What meds were considered but not given or refused? Why? @ -None Did you discuss the management of the patient with other professionals (professionals i.e. , PA, NON DESTRUCTIVE EVALUATION MANAGER, lab, RT, psych nurse, social worker psychiatric, stage hand, teacher, credit products officer, rehabilitation caseworker)? Give summary @ -No Was smoking cessation discussed for >3mins.? @ -No Was critical care preformed (if so, how long)? @ -No Were there social determinants of health that impacted care today? How? (Homelessness, low income, unemployed, alcoholism, drug addiction, transportation, low edu. Level, literacy, decrease access to med. care, residential, rehab)? @ -No Was there de-escalation of care discussed even if they declined (Discuss DNR or withdrawal of care, Hospice)? DNR status @ -No What co-morbidities impacted this encounter? (DM, HTN, Smoking, COPD, CAD, Cancer, CVA, ARF, Chemo, Hep., AIDS, mental health diagnosis, sleep apnea, morbid obesity)? @ -None Was patient admitted / discharged? Hospital course, mention meds given and route, prescriptions, significant lab abnormalities, going to OR and other pertinent info. @ -Patient provided IM Toradol and supraperiosteal nerve block performed. Initial dose of p.o. Augmentin provided and remaining regimen sent to patient's pharmacy. Chlorhexidine mouthwash and Motrin 800 also sent. Patient discharged with T3 starter pack. Discussed patient with Dr. Still. Undiagnosed new problem with uncertain prognosis? @ -No Drug Therapy requiring intensive monitoring for toxicity (Heparin, Nitro, Insulin, Cardizem)? @ -No Were any procedures done? @ -Supraperiosteal nerve block performed successfully with patient noting complete resolution of pain and resolution of trismus Diagnosis/symptom? @ -Periapical abscess Acute, or Chronic, or Acute on Chronic? @ -Acute Uncomplicated (without systemic symptoms) or Complicated (systemic symptoms)? @ -Uncomplicated Side effects of treatment? @ -No Exacerbation, Progression, or Severe Exacerbation? @ -No Poses a threat to life or bodily function? How? (Chest pain, [place], [place], pneumonia, PE, COPD, DKA, ARF, appy, cholecystitis, CVA, Diverticulitis, Homicidal, Suicidal, threat to staff... and all critical care pts) @ -No Disposition Clinical Impression: Dental abscess, Dental caries, Fracture of tooth Disposition: HOME SELF-CARE Condition: Good Instructions (If sedation given, give patient instructions): Dental Abscess (ED), Toothache (ED) Additional Instructions: Up with dentist/oral surgeon following completion of antibiotic regiment for definitive treatment Prescriptions: Amoxic-Pot Clav 875-125Mg [Augmentin 875-125] 1 tab PO Q12HR #20 tab Ibuprofen [Motrin] 800 mg PO Q8H PRN #20 tab PRN Reason: Pain Chlorhexidine Gluconate [Peridex] 15 ml PO BID #473 ml Is patient prescribed a controlled substance at d/c from ED?: No Referrals: None,Stated [Primary Care Provider] - 1-2 days Johnathan Torres DDS [STAFF PHYSICIAN] - 1-2 days Sivakumar Mccloud DDS [STAFF PHYSICIAN] - 1-2 days Time of Disposition: 11:40
[2024-05-22] MEDS: LIDOCAINE VISCOUS 2% 15 ML CUP MUCOUS MEM ONE (10:50)
[2024-05-22] MEDS: KETOROLAC 15 MG/ML 1 ML VIAL IM STA (10:51)
[2024-05-22] MEDS: AMOXIC-POT CLAV 875-125MG 1 EACH TAB PO STA (10:51)
[2024-05-22] MEDS: BUPIVACAINE (PF) 0.25% 30 ML VIAL SQ ONE (11:06)
[2024-05-22] MEDS: ACET/COD 300 MG/30 MG STARTER PACK 6 TAB BTL PO STA (12:00)
[2024-05-22 12:03] VITALS: BP 120/77; PULSE 91; TEMP 98.4
== END 2024-05-22 12:03 | disposition home or self-care (01) ==
LOC: EC 10:16
DX: K03.81 Cracked tooth (principal); K02.9 Dental caries, unspecified; K04.7 Periapical abscess without sinus; F17.200 Nicotine dependence, unspecified, uncomplicated
CPT/HCPCS: 99283 ×2; 96372 ×2; 64400 ×2; J1885; J0665